=== PATIENT | female | born 1990 | race Caucasian/White ===

== ENCOUNTER 2025-03-31 18:24 | Emergency (ER) | payer OTHER, SELFPAY ==
--- NOTE | ~2025-03-31 | XR_ITS ---
EXAMINATION: XR knee RT min 4V DATE: 03/31/2025 19:18 INDICATION: Right knee pain TECHNIQUE: Anteroposterior, 2 oblique and crosstable lateral views of the right knee were obtained COMPARISON: None. FINDINGS: Alignment is normal. No fracture. Joint spaces appear normal on nonweightbearing imaging. No osteoph ytosis or erosions. No joint effusion/layering lipohemarthrosis. Soft tissues are unremarkable. IMPRESSION: 1. Normal right knee radiographs. Reviewed, dictated and finalized at location A.
[2025-03-31 18:34] VITALS: BP 113/85; PULSE 97; RESP 17; TEMP 36.4; O2SAT 99
--- NOTE | 2025-03-31 18:40 | ED.LOWEXIN ---
HPI - Extremity Injury (Lower) General Chief Complaint: Extremity Injury, Lower <Virginia Romero APRN - Last Filed: 04/03/25 19:05> Stated Complaint: r knee pain <Virginia Romero APRN - Last Filed: 04/03/25 19:05> Time Seen by Provider: 03/31/25 18:40 <Virginia Romero INTERIOR DESIGN PROFESSOR - Last Filed: 04/03/25 19:05> Focused HPI: Patient is a 34-year-old female who presents to the ER with right knee pain. She reports round 9:00 a.m. this morning she ?stepped up on a step and felt like a knife was going through it. Patient reports the pain is worse when she tries to straighten or bend her knee. She reports her knee joints feels stable. Patient denies any recent fevers, calf pain, redness or significant edema. She endorses a history of hysterectomy, tonsillectomy, hyperthyroidism, and left knee osteoarthritis. GENERAL: Well-appearing, obese and in no acute distress. HEAD: Normocephalic, atraumatic. CHEST: Clear to auscultation. ?No respiratory distress. HEART: Regular rate and rhythm.? NEURO: ?Alert and oriented x3. Patient screened in triage and initial orders placed.? ?Additional care and disposition to be based upon?diagnostic testing and treatment. <Virginia Romero, INTERIOR DESIGN PROFESSOR - Last Filed: 04/03/25 19:05> Related Data Allergies/Adverse Reactions: Allergies Allergy/AdvReac Type Severity Reaction Status Date / Time hydrocodone Allergy Intermediate Confusion Verified 03/31/25 18:39 oxycodone Allergy Intermediate Agitated Verified 03/31/25 18:39 <Virginia Romero, INTERIOR DESIGN PROFESSOR - Last Filed: 04/03/25 19:05> Course Vital Signs Vital signs: Vital Signs Temperature 36.4 C L 03/31/25 18:34 Pulse Rate 97 03/31/25 18:34 Respiratory Rate 17 03/31/25 18:34 Blood Pressure 113/85 03/31/25 18:34 Pulse Oximetry 99 03/31/25 18:34 Oxygen Delivery Room Air 03/31/25 18:34 Temperature 36.6 C 03/31/25 21:25 Pulse Rate 94 03/31/25 21:25 Respiratory Rate 18 03/31/25 21:25 Blood Pressure 116/78 03/31/25 21:25 Pulse Oximetry 99 03/31/25 21:25 Oxygen Delivery Room Air 03/31/25 21:25 <Virginia Romero APRN - Last Filed: 04/03/25 19:05> Vital Signs Temperature 36.4 C L 03/31/25 18:34 Pulse Rate 97 03/31/25 18:34 Respiratory Rate 17 03/31/25 18:34 Blood Pressure 113/85 03/31/25 18:34 Pulse Oximetry 99 03/31/25 18:34 Oxygen Delivery Room Air 03/31/25 18:34 Temperature 36.6 C 03/31/25 21:25 Pulse Rate 94 03/31/25 21:25 Respiratory Rate 18 03/31/25 21:25 Blood Pressure 116/78 03/31/25 21:25 Pulse Oximetry 99 03/31/25 21:25 Oxygen Delivery Room Air 03/31/25 21:25 <Corine Ellis MD - Last Filed: 04/04/25 07:15> MDM - Extremity Injury (Lower) MDM Narrative Medical decision making narrative: X-ray of right knee showed no acute abnormalities <Corine Ellis MD - Last Filed: 04/04/25 07:15> Imaging Data Radiologist's impression: x-ray of the right knee showed normal right knee radiograph <Corine Ellis MD - Last Filed: 04/04/25 07:15> Critical Care Time Critical Care Time Critical Care Time: No <Corine Ellis MD - Last Filed: 04/04/25 07:15> Discharge Plan Discharge Clinical Impression: Right knee sprain <Virginia Romero APRN - Last Filed: 04/03/25 19:05> Patient Disposition: Home <Virginia Romero APRN - Last Filed: 04/03/25 19:05> Condition: Stable <Virginia Romero APRN - Last Filed: 04/03/25 19:05> Instructions: Knee Sprain (ED) <Virginia Romero APRN - Last Filed: 04/03/25 19:05> Additional Instructions: RETURN IF SYMPTOMS ARE WORSENING , CALL YOUR FAMILY PHYSICIAN FOR APPOINTMENT, TAKE TYLENOL, IBUPROFEN NEEDED FOR ACHES AND PAIN, CONTINUE HOME MEDICATIONS. <Virginia Romero APRN - Last Filed: 04/03/25 19:05> Patient Language: Irish <Virginia Romero APRN - Last Filed: 04/03/25 19:05> Follow-up/Referrals: PHYSICIAN NOT ON STAFF,NONSTAFF [Non-Staff] - <Virginia Romero APRN - Last Filed: 04/03/25 19:05>
--- NOTE | 2025-03-31 19:41 | ED_ITS ---
HPI - Extremity Injury (Lower) General Chief Complaint: Extremity Injury, Lower Stated Complaint: r knee pain Time Seen by Provider: 03/31/25 18:40 Source: patient Mode of arrival: ambulatory Limitations: no limitations History of Present Illness HPI Narrative: 34 YEARS OLD WHITE FEMALE CAME TO THE ED BY PRIVATE CAR COMPLAINING OF RIGHT KNEE PAIN ANTERIORLY LATERALLY AFTER STEPPED UP 1 STEP AND FELT A POP SHE DENIES OTHER INJURIES Related Data Allergies Allergy/AdvReac Type Severity Reaction Status Date / Time hydrocodone Allergy Intermediate Confusion Verified 03/31/25 18:39 oxycodone Allergy Intermediate Agitated Verified 03/31/25 18:39 Review of Systems Review of Systems: All systems reviewed & are unremarkable except as noted in HPI and below Exam Narrative: GENERAL APPEARANCE: WELL-DEVELOPED, WELL-NOURISHED SKIN: NORMAL COLOR HEAD: NORMOCEPHALIC, NONTRAUMATIC CHEST AND RESPIRATORY: AIRWAY PATENT, NO RESPIRATORY DISTRESS, NO ACCESSORY MUSCLE USE HEART: REGULAR RATE/RHYTHM VASCULAR: NORMAL PERIPHERAL PULSES, NORMAL CAPILLARY REFILL. 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, NO GROSS MOTOR DEFICIT Course Vital Signs Vital signs: Vital Signs Temperature 36.4 C L 03/31/25 18:34 Pulse Rate 97 03/31/25 18:34 Respiratory Rate 17 03/31/25 18:34 Blood Pressure 113/85 03/31/25 18:34 Pulse Oximetry 99 03/31/25 18:34 Oxygen Delivery Room Air 03/31/25 18:34 Temperature 36.4 C L 03/31/25 18:34 Pulse Rate 97 03/31/25 18:34 Respiratory Rate 17 03/31/25 18:34 Blood Pressure 113/85 03/31/25 18:34 Pulse Oximetry 99 03/31/25 18:34 Oxygen Delivery Room Air 03/31/25 18:34 MDM - Extremity Injury (Lower) Differential Diagnosis Differential diagnosis: Likely other (RIGHT KNEE SPRAIN/STRAIN , INTERNAL INJURY) Imaging Data Radiologist's impression: Impressions Knee X-Ray 03/31/25 20:51 IMPRESSION: 1. Normal right knee radiographs. Critical Care Time Critical Care Time Critical Care Time: No Discharge Plan Discharge Clinical Impression: Right knee sprain Patient Disposition: Home Condition: Stable Instructions: Knee Sprain (ED) Additional Instructions: RETURN IF SYMPTOMS ARE WORSENING , CALL YOUR FAMILY PHYSICIAN FOR APPOINTMENT, TAKE TYLENOL, IBUPROFEN NEEDED FOR ACHES AND PAIN, CONTINUE HOME MEDICATIONS. Patient Language: Uzbek Follow-up/Referrals: PHYSICIAN NOT ON STAFF,NONSTAFF [Non-Staff] -
[2025-03-31] MEDS: KETOROLAC (*BKC) 60 MG/2 ML VIAL IM (19:43)
--- OUTSIDE RECORDS SUMMARY | 2025-03-31 20:45 | XMS_ITS ---
Author Organization [facility] Address [address] [place] [address] Care Team Providers Care Transcript Evaluator Name Role Phone Gena Dye Primary Care Provider Genevieve Dewitt [phone] REASON FOR VISIT New Patient Psych Eval Social History Sex Assigned At : Social History Observation Description Sex Assigned At Female Encounters Encounter Location Date Provider Diagnosis [facility] [address] [place] [address] 01/11/2025 Genevieve Dewitt Plan Of Treatment No Information Progress Notes * Veronica HILTONfabioDOB: 0 (34 yo F)Acc No.[id number]:01/11/2025 UNLOCKED PROGRESS NOTE Patient: Lurdes REA Provider: RADHA Wise :1990 A ge:34 Y S ex:Female Date:01/11/2025 Address:[address] [place], [place] [id number] Pcp:Gena Dye Subjective: * Chief Complaints: * 1 . New Patient Psych Eval. * Medical History: Objective: * Vitals: Assessment: Plan: * Treatment: * * Electronic signature of Prince Dewitt on 03/31/2025 at 05:05 PM CDT Sign off status: Pending * Provider: RADHA Wise Date: 01/11/2025 Generated for Jenny ng/Raj/eTransmitting on: 0 03/31/2025 05:05 PM CDT
--- OUTSIDE RECORDS SUMMARY | 2025-03-31 20:45 | XMS_ITS | Clinical Summary ---
Author Organization [facility] Address [address] [address] [place] [address] Phone Care Team Providers Care Bleacher Pulp Name Role Phone Unavailable Primary Care Provider Unavailabl e Allergies No known active allergies Medications triamcinolone acetonide (KENALOG) 0.1 % Paste Apply to affected area 2 times daily. Active dicyclomine (BENTYL) 10 mg capsule Take 10 mg by mouth 4 times daily. Active naproxen (NAPROSYN EC) 500 mg Tablet, Delayed Release (E.C.) Take by mouth 2 times daily. Active phentermine (ADIPEX P) 37.5 mg tablet Take 37.5 mg by mouth daily before breakfast. Active clindamycin phosphate (CLEOCIN) 1 % Swab Apply to affected area 2 times daily. Active doxycycline hyclate (VIBRAMYCIN) 100 mg capsule Take 100 mg by mouth 2 times daily. Active Encounters Date Type Department Care Team Description 03/07/2025 External Device Data [facility] Provider, Abstract 03/07/2025 External Device Data [facility] Provider, Abstract 03/07/2025 External Device Data [facility] Provider, Abstract 03/05/2025 5:06 PM CDT - 03/05/2025 7:48 PM CDT Emergency [facility] [address] [address] Constipation, unspecified constipation type (Primary Dx); Lower abdominal pain Discharge Disposition: Home or Self Care 03/05/2025 Travel from Last 3 Months Social History Tobacco Use Types Packs/Day Years Used Date Smoking Tobacco: Never Assessed Comments Unknown Sex and Gender Information Value Date Recorded Sex Assigned at Not on file Legal Sex Female 5:39 PM CDT Gender Identity Not on file Sexual Orientation Not on file Last Filed Vital Signs Vital Sign Reading Time Taken Comments Blood Pressure 119/86 03/05/2025 6:00 PM CDT Pulse 79 03/05/2025 6:00 PM CDT Temperature 36 C (96.8 F) 03/05/2025 5:05 PM CDT Respiratory Rate 16 03/05/2025 5:05 PM CDT Oxygen Saturation 94% 03/05/2025 6:00 PM CDT Inhaled Oxygen Concentration - - Weight 106.6 kg (235 lb) 03/05/2025 5:05 PM CDT Height 160 cm (5' 3) 03/05/2025 5:05 PM CDT Body Mass Index 41.63 03/05/2025 5:05 PM CDT Plan of Treatment Health Maintenance Due Date Last Done Comments HEPATITIS B VACCINES (3 of 3 - 3-dose series) 05/03/1997 03/08/1997, 01/03/1997 HPV VACCINES (1 - 3-dose series) 2004 DIABETES ANNUAL FOOT EXAM 12/10/2007 DIABETES ANNUAL RETINAL EXAM 12/10/2007 DIABETES MICROALBUMIN ANNUAL SCREEN 12/10/2007 LDL CHOLESTEROL ANNUAL 12/10/2007 HPV/Cotest (21-29) 2010 HPV/Cotest (30-65) 12/10/2019 COVID-19 Vaccine (3 - 2023-2 5 season) 2024 05/27/2021, 04/12/2021 INFLUENZA VACCINE (#1) 2025 06/11/2017 DIABETES HBA1C Q 6 MONTHS 08/29/2025 02/27/2025 DTAP/TDAP/TD VACCINES (8 - T d or Tdap) 10/06/2025 10/06/2015, 03/25/2015, 01/14/1994, Additional history exists CERVICAL CANCER SCREENING 11/21/2025 PAP SMEAR 11/21/2025 11/21/2022, 04/22/2017 Procedures Procedure Name Priority Date/Time Associated Diagnosis Comments EXTRA TUBE (URINE MARKS) Stat 03/05/2025 6:21 PM CDT URINALYSIS W/REFLEX MICROSCOPIC Stat 03/05/2025 6:21 PM CDT XR ABDOMEN 1 VW Stat 03/05/2025 6:00 PM CDT from Last 3 Months Results * EXTRA TUBE (URINE MARKS) (03/05/2025 6:21 PM CDT) Urine (Urine, straight in/out catheter) Collection / Unknown 03/05/2025 6:21 PM CDT 03/05/2025 6:27 PM CDT us Bernice Tovar PA-C URINE ORDERABLES Final Result [facility] [place] CLIA # [id number] [address] [place] [address] * (ABNORMAL) URINALYSIS WITH REFLEX MICROSCOPIC (03/05/2025 6:21 PM CDT) COLOR UA Pale Yellow Pale to Dark Yellow 03/05/2025 6:31 PM CDT [facility] CLARITY UA Clear Clear 03/05/2025 6:31 PM CDT [facility] SPECIFIC GRAVITY UA 1.019 1.003 - 1.035 03/05/2025 6:31 PM CDT [facility] PH UA 5.5 5.0 - 8.0 03/05/2025 6:31 PM CDT [facility] [place] LEUKOCYTE ESTERASE UA Negative Negative 03/05/2025 6:31 PM CDT [facility] [place] NITRITE UA Negative Negative 03/05/2025 6:31 PM CDT [facility] [place] PROTEIN UA Negative Negative 03/05/2025 6:31 PM CDT [facility] [place] GLUCOSE UA Negative Negative 03/05/2025 6:31 PM CDT [facility] [place] KETONES UA Trace(A) Negative 03/05/2025 6:31 PM CDT [facility] [place] UROBILINOGEN UA Normal <2.0 mg/dL 6:31 PM CDT [facility] [place] BILIRUBIN UA Negative Negative 03/05/2025 6:31 PM CDT [facility] [place] BLOOD UA Negative Negative 03/05/2025 6:31 PM CDT [facility] [place] Urine (Urine, straight in/out catheter) Collection / Unknown 03/05/2025 6:21 PM CDT 03/05/2025 6:27 PM CDT Bernice Tovar PA-C URINE ORDERABLES Final Result [facility] [place] MARSH # [id number] [place] [address] * XR ABDOMEN 1 VW (03/05/2025 6:00 PM CDT) Anatomical Region Laterality Modality Abdomen Computed Radiogr aphy 03/05/2025 6:01 PM CDT Impressions 03/05/2025 6:08 PM CDT IMPRESSION: Nonobstructive bowel gas pattern. Moderate amount of stool within the colon. DICTATION LOCATION: Location 4 Narrative 03/05/2025 6:08 PM CDT EXAM: XR ABDOMEN 1 VW DATE: 03/05/2025 6:00 PM HISTORY: Constipation COMPARISON: None FINDINGS: Frontal views of the abdomen were performed. The bowel gas pattern is nonspecific. There is no dilated bowel, free air, or air-fluid levels. A moderate amount of stool is noted throughout the colonic lumen. The soft tissues are otherwise unremarkable. The bones are within normal limits. Procedure Note Romain De La O MD - 03/05/2025 EXAM: XR ABDOMEN 1 VW DATE: 03/05/2025 6:00 PM HISTORY: Constipation COMPARISON: None FINDINGS: Frontal views of the abdomen were performed. The bowel gas pattern is nonspecific. There is no dilated bowel, free air, or air-fluid levels. A moderate amount of stool is noted throughout the colonic lumen. The soft tissues are otherwise unremarkable. The bones are within normal limits. IMPRESSION: Nonobstructive bowel gas pattern. Moderate amount of stool within the colon. DICTATION LOCATION: Location 4 Bernice Tovar PA-C DIAGNOSTIC IMAGING ORDERABLES Final Result from Last 3 Months Insurance [employer] [place]
--- OUTSIDE RECORDS SUMMARY | 2025-03-31 20:45 | XMS_ITS | Referral Summary ---
Author Organization [facility] Address [address] [place] [address] Care Team Providers Care Land Checker Name Role Phone Andrade Chen Primary Care Provider [phone] Encounters Date Type Department Care Team Description 01/02/2025 1:27 PM CDT - 01/02/2025 11:59 PM CDT Hospital Encounter [facility] Nutrition and Diabetic Education 1 [facility] [address] [place] [address] Type 2 diabetes mellitus with hyperglycemia, without long-term current use of insulin (HCC); Hyperlipidemia, unspecified hyperlipidemia type Discharge Disposition: Discharge to home or self care from Last 3 Months Allergies No known active allergies Medications naproxen (NAPROSYN) 500 mg tablet Take 1 tablet (500 mg total) by mouth 2 (two) times a day with meals 14 tablet 0 Active Additional Information Patient taking differently:500 mg oralAs needed, pain, Informant: Self, Reported on 01/22/2023 FLUoxetine 10 mg capsuleIndicati ons:Anxiety with Depression Take 1 tablet/capsule (10 mg total) by mouth nightly 3 Active dicyclomine (BENTYL) 10 mg capsule 3 Active cyclobenzaprine (FLEXERIL) 10 mg tabletIndicatio ns:Muscle Spasm Take 1 tablet (10 mg total) by mouth 3 (three) times a day as needed for muscle spasms 3 Active albuterol HFA (PROVENTIL HFA,VENTOLIN HFA,PROAIR HFA) 90 mcg/actuation inhalerIndicati ons:Acute Asthma Attack Inhale 2 puffs every 4 (four) hours as needed for wheezing or shortness of breath 2-3puffs 3 Active ibuprofen (ADVIL,MOTRIN) 800 mg tabletIndicatio ns:Anti-inflamm atory Take 1 tablet (800 mg total) by mouth every 6 (six) hours as needed for pain Active acetaminophen (TYLENOL) 500 mg tablet Take 2 tablets (1,000 mg total) by mouth every 6 (six) hours 60 tablet 1 3 Active ibuprofen (ADVIL,MOTRIN) 600 mg tablet Take 1 tablet (600 mg total) by mouth every 6 (six) hours as needed for pain 45 tablet 1 3 Active oxyCODONE (ROXICODONE) 5 mg immediate release tabletIndicatio ns:Pain Take 1 tablet (5 mg total) by mouth every 4 (four) hours as needed for pain For severe breakthrough pain 15 tablet 3 Active Additional Information Patient not taking.Reported on 03/05/2023 polyethylene glycol (MIRALAX) 17 gram/dose powder Take 17 g by mouth daily for 14 days 119 g 1 3 Active Active Problems Problem Noted Date Diagnosed Date Dysmenorrhea 11/21/2022 Overview (11/21/2022): Added automatically from request for surgery [id number] Depression 01/21/2014 Overview (12/11/2016): DEPRESSIVE DISORDER NEC Social History Tobacco Use Types Packs/Day Years Used Date Smoking Tobacco: Former Cigarettes 1 22 1 11/01/1999 - 08/31/2022 Passive Smoke Exposure: Past Smokeless Tobacco: Never Tobacco Cessation:Counseling Given: Not Answered Alcohol Use Standard Drinks/Week Comments No 0 (1 standard drink = 0.6 oz pur e alcohol) AUDIT-C Answer Date Recorded Q1: How often do you have a drink containing alcohol? Never 01/29/2023 Q2: How many drinks containi ng alcohol do you have on a typical day when you are drinking? Patient does not drink Q3: How often do you have si x or more drinks on one occasion? Never 01/29/2023 Hunger Vital Sign Answer Date Recorded Within the past 12 months, y ou worried that your food would run out before you got the money to buy more. Never true 03/05/20 23 Within the past 12 months, t he food you bought just didn't last and you didn't have money to get more. Never true 03/05/2023 Personal Safety Answer Date Recorded Have you ever been in or are you currently in a harmful physical or emotional relationship or is someone making you feel afraid or unsafe? Denies 01/29/2023 Comments No Sex and Gender Information Value Date Recorded Sex Assigned at Not on file Legal Sex Female 11:51 PM PROPERTY CLAIMS MANAGER Gender Identity Not on file Sexual Orientation Not on file Last Filed Vital Signs Vital Sign Reading Time Taken Comments Blood Pressure 145/88 03/05/2023 4:03 PM CDT Pulse 111 03/05/2023 4:03 PM CDT Temperature 36.4 C (97.5 F) 01/29/2023 10:30 AM CDT Respiratory Rate 13 01/29/2023 11:50 AM CDT Oxygen Saturation 99% 03/05/2023 4:03 PM CDT Inhaled Oxygen Concentration - - Weight 117.9 kg (260 lb) 01/02/2025 3:07 PM CDT Height 160 cm (5' 3) 01/02/2025 3:07 PM CDT Body Mass Index 46.06 01/02/2025 3:07 PM CDT Plan of Treatment Not on file Procedures Procedure Name Priority Date/Time Associated Diagnosis Comments EGFR Routine 01/22/2023 11:20 AM CDT Preoperative testing PAP AND HIGH RISK HPV, REFLEX TO GENOTYPING Routine 11/21/2022 8:58 AM CDT from Last 3 Months or Most Recently Relevant to Health Maintenance Results * eGFR (01/22/2023 11:20 AM CDT) eGFR >90 90 - 130 mL/min/1. 73 m2 [facility] Comment: Interpretive Data Reference Interval Normal >/= 90 mL/min/1.73m2 Mildly decreased* 60 - 89 mL/min/1.73m2 Mildly to moderately decreased 45 - 59 mL/min/1.73m2 Moderately to severely decreased 30 - 44 mL/min/1.73m2 Severely decreased 15 - 29 mL/min/1.73m2 Kidney Failure < 15 mL/min/1.73m2 *Relative to young adult level Estimated glomerular filtration rate is determined by the 2020 CKD-EPI equation recommended by the National Kidney Foundation (A Unifying Approach to GFR Estimation: Recommendations of the NKF-ASK Task Force on Reassessing the Inclusion of Race in Diagnosing Kidney Disease, JASN 2020). The CKD-EPI equation should not be used for patients with unstable renal function and has not been validated in children and those over 70. Current interpretive data was last reviewed 2021. Blood 01/22/2023 11:2 0 AM CDT 01/22/2023 12:38 PM CDT us Jono Montero WIND SITE MANAGER LAB BLOOD ORDERABLES Fin al Result [facility] Department [place] [address] * Pap and High Risk HPV, reflex to Genotyping (11/21/2022 8:58 AM CDT) Pap test 11/21/2022 8:58 AM CDT 11/21/2022 11:15 AM CDT Narrative 11/28/2022 4:36 PM CDT EPIC results best viewed via link to PDF [facility] [place] [address] Note to Patients: This report may contain a detailed description of human tissue sent by a health care provider to the laboratory for pathologic evaluation. The content of this report is essential for diagnosis and may provide important critical findings. This information may be unfamiliar to patients to review without a medical professional present. It is advised that the patient review this report in the presence of a health care provider who can answer questions and explain the details. CYTOPATHOLOGY REPORT FINAL Patient Name: JOVANY HILTON Gender: F : 1990 (Age: 31) Address: [address] [place] [id number] Hospital #: [id number] Service: Gynecology Location: Patient Type: [facility] Ancillary Taken: 11/21/2022 Received: 11/21/2022 Accessioned: 11/24/2022 Reported: 11/28/2022 Physician(s): Danielle Ayala MD, PhD FINAL INTERPRETATION SOURCE OF SPECIMEN Liquid based Thin Prep pap with HPV: STATEMENT OF ADEQUACY - Satisfactory for evaluation - Endocervical cells/transformation zone sample present GENERAL CATEGORIZATION: - Negative for squamous intraepithelial lesion or malignancy Comments HPV Result: NEGATIVE for high risk types of Human Papilloma Virus (HPV) RNA This probe detects the presence of HPV types: 16, 18, 31, 33, 35, 39, 45, 51, 52, 56, 58, 59, 66 and 68. This HPV test was performed at [facility] in [place], [place] utilizing the Gen-Probe Aptima assay. lw/11/28/2022 16:36 CHARU Cuba MS(ASCP)EBONI Report Electronically Reviewed and Signed Out By CHARU Cuba MS(ASCP)EBONI 11/28/2022 16:36:40 Cervicovaginal Cytology (Pap Test) Disclaimer: The Pap test is a screening test used to detect cervical cancer and its precursors; it is not a diagnostic procedure. False negative and false positive results do occur. Pap test results should be interpreted in the context of pertinent clinical information and biopsy results as indicated. [facility] Clinical Laboratory Improvement Amendments (CLIA) mandate that cytologic and histologic results be correlated for laboratory quality compliance coordinator & improvement standards. FOR ALL HIGH-GRADE CASES we request submission of follow-up histological material and/or reports that have not been previously provided so that we may fulfill said required standards. Gross Description A. Liquid based Thin Prep pap with HPV: Cervical/vaginal - Screening ThinPrep with HPV Clinical Diagnosis and History Last Menstrual Period: unknown The patient is a 31 year old woman with screening pap. The HPV test was performed by [facility], [address] [place] [address]. Report Images and scanned documents, if included only viewable in PDF version The performance characteristics of some immunohistochemical stains, in-situ hybridization and fluorescence in-situ hybridization tests and immunophenotyping by flow cytometry cited in this report (if any) were determined by the Surgical Pathology Department at [facility] as part of an ongoing director supplier quality program and in compliance with federally mandated regulations drawn from the Clinical Laboratory Improvement Act of 1988 (CLIA '88). Some of these tests rely on the use of analyte specific reagents and are subject to specific labeling requirements by the US Food and Drug Administration. Such diagnostic tests may only be performed in a facility that is certified by the Department of Health and Human Services as a high complexity laboratory under CLIA '88. The FDA has determined that such clearance or approval is not necessary. This test is used for clinical purposes. It should not be regarded as investigational or for research. Nevertheless, federal rules concerning the medical use of analyte specific reagents require that the following disclaimer be attached to the report: This test was developed and its performance characteristics determined by the Surgical Pathology Department of [facility]. It has not been cleared or approved by the U. S. Food and Drug Administration. Danielle Ayala MD PhD LAB CYTOLOGY ORDERAB LES Final Result from Last 3 Months or Most Recently Relevant to Health Maintenance Insurance [id number] [facility] Care Teams Land Checker Relationship Specialty Start Date End Date Andrade Chen PA [address] [place] [address] PCP - General Orthopedic Surgery 12/23/24
--- OUTSIDE RECORDS SUMMARY | 2025-03-31 20:45 | XMS_ITS | Clinical Summary ---
Author Organization [facility] Address [address] [place] [address] Care Team Providers Care Ground Host/Hostess Name Role Phone Unknown, Provider Primary Care Provider Unavaila ble Source Comments [facility],non-owned Affiliates and Associated Physician Practices is amultiple site organization consisting of ambulatory clinics and hospital sitesin [place], [place], [place] and [place]. This disclosure is being madepursuant to the Care Everywhere program and may not contain all information available regarding this patient. Last updated 18.[facility] Allergies Active Allergy Reactions Criticality Noted Date Comments Hydrocodone-Acetaminophen Other 02/18/2021 Patient states she does not want to be prescribed Vicodin as she likes them and knows she will become addicted to them Seasonal Swelling High 12/26/2015 marijuana Medications * Be aware that medications may not be up to date on this document. Alwaysverify current medications with the patient. erythromycin (ERYDERM) 2 % solution 120 mL 2 8 Active Additional Information Patient not taking.Reported on 02/09/2023 albuterol HFA (Proventil; Ventolin; Proair) 108 (90 Base) MCG/ACT inhaler INHALE 2 PUFFS BY MOUTH EVERY 6 HOURS NEEDED FOR WHEEZING OR COUGH 3 Active FLUoxetine (PROzac) 10 MG capsule Take 1 (one) capsule by mouth once daily 3 Active cyclobenzaprine (Flexeril) 10 MG tablet Take 1 (one) tablet by mouth 3 times daily as needed For muscle spasms. 3 Active hydrocortisone (Hytone) 2.5 % creamIndications :Intertrigo Apply to affected areas in skin folds when pink and itchy up BID PRN. 30 days supply. 30 g 11 3 Active ketoconazole (Nizoral) 2 % creamIndications :Intertrigo Apply to affected areas twice daily PRN. 30 days supply. 60 g 11 3 Active clindamycin (Cleocin) 1 % lotionIndication s:Bacterial folliculitis Apply to affected areas on folds daily PRN. 30 day supply. 60 mL 11 4 Active doxycycline hyclate 100 MG tabletIndication s:Bacterial folliculitis TAKE 1 TABLET BY MOUTH TWICE DAILY AFTER MEAL 60 tablet 2 5 Active Active Problems No known active problems Encounters Date Type Department Care Team Description 03/29/2025 Telephone [facility] - Dermatology [address] [place] [address] [phone] Brionna Nichole MD Medication Issue (Pls call to discuss pt concerns abt infection w/out med refills until appt in June.) 03/06/2025 Refill [facility] - Dermatology [address] [place] [address] [phone] Lita Varela MD Refill Request from Last 3 Months Family History Medical History Relation Name Comments Cancer - Skin, Melanoma Mother CVA Neg Hx Cancer - Breast Neg Hx Cancer - Other Neg Hx Cancer - Skin, Non Melanoma Neg Hx Eczema Neg Hx Hemophilia Neg Hx Psoriasis Neg Hx Relation Name Status Comments Mother Social History Tobacco Use Types Packs/Day Years Used Date Smoking Tobacco: Every Day Smokeless Tobacco: Never Comments Unknown Sex and Gender Information Value Date Recorded Sex Assigned at Not on file Legal Sex Female 5:57 PM CDT Gender Identity Not on file Sexual Orientation Not on file Plan of Treatment Health Maintenance Due Date Last Done Comments HIV SCREENING 2004 HEPATITIS C SCREENING 12/05/2007 DTAP/TDAP/TD VACCINES (1 - Tdap) 2008 HEPATITIS B VACCINE (1 of 3 - 19+ 3-dose series) 2008 PNEUMOCOCCAL VACCINE (1 of 2 - PCV) 2008 PAP SMEAR 2010 HPV VACCINE (1 - 3-dose SCDM series) 2016 COVID-19 VACCINE (2023-2 5 season) 2024 05/27/2021, 04/12/2021 DEPRESSION SCREENING 09/07/2024 INFLUENZA VACCINE (#1) 2025 06/11/2017 ZOSTER VACCINE (1 of 2) 12/10/2039 HIB VACCINE Aged Out No longer eligi ble based on patient's age to complete this topic MENINGOCOCCAL (Group B) VACCINE SHARED DECISION-MAKING Aged Out No longer eligible based on patient's age to complete this topic MENINGOCOCCAL GROUPS A/C/Y/W VACCINE Aged Out No longer eligible b ased on patient's age to complete this topic Insurance [facility] Member Subscriber Plan / Payer (Ef fective for All Dates) Name:Jovany Hilton Relation to Subscriber:Self Name:JOVANY HILTON Payer ID:[id number] (NAIC) Group ID:Not on file Type:Medicaid Managed Care Address: [facility] CLAIMS DEPARTMENT [address] [address] [place] [address] Care Teams Ground Host/Hostess Relationship Specialty Start Date End Date Unknown, Provider PCP - General 01/14/18
--- OUTSIDE RECORDS SUMMARY | 2025-03-31 20:45 | XMS_ITS | Encounter Summary ---
Author Organization [facility] Address [address] [place] [address] Care Team Providers Care Meter Maker Name Role Phone Unknown, Provider Primary Care Provider Unavaila ble Reason for Visit * Reason Onset Date Comments MEDICATION REFILL 08/13/2023 Encounter Details Date Type Department Care Team (Late st Contact Info) Description 08/13/2023 Refill [facility] - General Dermatology [address], [facility] [address] [place] [address] Norma Potter MD [address] [facility] [address] [id number] MEDICATION REFILL Social History Tobacco Use Types Packs/Day Years Used Date Smoking Tobacco: Every Day Smokeless Tobacco: Never Comments Unknown Sex and Gender Information Value Date Recorded Sex Assigned at Not on file Legal Sex Female 5:57 PM CDT Gender Identity Not on file Sexual Orientation Not on file documented as of this encounter Miscellaneous Notes * Telephone Encounter - Wilda Mo - 08/13/2023 4:00 PM CST LV 02/09/23 NV 12/04/23 RTC 3 months or earlier PRN. ?? *KOLE note states that patient did not tolerate* Wilda Mo ETARY TO BOARD OF COMMISSIONERS documented in this encounter Plan of Treatment Not on file documented as of this encounter Visit Diagnoses Not on filedocumented in this encounter Care Teams Meter Maker Relationship Specialty Start Date End Date Unknown, Provider PCP - General 01/14/18 documented as of this encounter
--- OUTSIDE RECORDS SUMMARY | 2025-03-31 20:45 | XMS_ITS | Encounter Summary ---
Author Organization [facility] Address [address] [place] [address] Care Team Providers Care Client Relations Specialist Name Role Phone Unknown, Provider Primary Care Provider Unavaila ble Reason for Visit * Reason Onset Date Comments MEDICATION REFILL 2023 Encounter Details Date Type Department Care Team (Late st Contact Info) Description 2023 Refill [facility] - General Dermatology [address], [facility] [address] [place] [address] Norma Potter MD [address] [facility] [address], [place] [id number] MEDICATION REFILL Social History Tobacco Use Types Packs/Day Years Used Date Smoking Tobacco: Every Day Smokeless Tobacco: Never Comments Unknown Sex and Gender Information Value Date Recorded Sex Assigned at Not on file Legal Sex Female 5:57 PM CDT Gender Identity Not on file Sexual Orientation Not on file documented as of this encounter Plan of Treatment Not on file documented as of this encounter Visit Diagnoses Not on filedocumented in this encounter Care Teams Client Relations Specialist Relationship Specialty Start Date End Date Unknown, Provider PCP - General 01/14/18 documented as of this encounter
--- OUTSIDE RECORDS SUMMARY | 2025-03-31 20:45 | XMS_ITS | Patient Health Record ---
Author Organization [facility] Address [address] [place] [address] Care Team Providers Care Dance Choreographer Name Role Phone Gena Dye Primary Care Provider Genevieve Dewitt [phone] Reason For Referral No Information Social History Sex Assigned At : Social History Observation Description Sex Assigned At Female Plan Of Treatment No Information Insurance Providers Payer Name Payer Address Payer Phone Subscriber Number Group Number Insured Name Patient Relationship to Insured Coverage Start Date Coverage End Date [facility] Attn Claims Department [address] [place] [id number] Lurdes Hilton Self - patient is the insured 5
--- OUTSIDE RECORDS SUMMARY | 2025-03-31 20:45 | XMS_ITS | Encounter Summary ---
Author Organization [facility] Address [address] [place] [address] Phone Care Team Providers Care Access Representative Name Role Phone Piyush Sauer DO Unavailable [phone] [place] Verma ANALYTICS ASSOCIATE, FORKLIFT MATERIAL HANDLER Unavailable Socorro Hopson ANALYTICS ASSOCIATE, FORKLIFT MATERIAL HANDLER Unavailable Andrade Chen PAC Primary Care Provider Shelbie Bonner ANALYTICS ASSOCIATE, FORKLIFT MATERIAL HANDLER Unavailable Encounter Details Date Type Department Care Team (Late st Contact Info) Description 10/14/2023 Lab [facility]quisition [facility] [address] [place] [address] Andrade Chen, PAC [address] [place] [address] Encounter for pre-employment examination Social History Tobacco Use Types Packs/Day Years Used Date Smoking Tobacco: Former Cigarettes 1 15 Smokeless Tobacco: Never Alcohol Use Standard Drinks/Week Comments No 0 (1 standard drink = 0.6 oz pur e alcohol) PHQ-2 Answer Date Recorded PHQ-2 Score 0 05/11/2019 Sexually Active Control Partners Comments Yes Implant Comments No Sex and Gender Information Value Date Recorded Sex Assigned at Female 2024 12:01 AM CDT Legal Sex Female 9:16 PM CDT Gender Identity Female 2024 12:01 AM CDT Sexual Orientation Not on file documented as of this encounter Plan of Treatment Upcoming Encounters Date Type Department Care Team (Late st Contact Info) Description 04/13/2025 2:15 PM CDT Office Visit [facility] - Primary Care - [place] [address] [place] [address] Andrade Chen, GURPREET [address] [place] [address] 06/02/2025 2:30 PM CDT Office Visit [facility] - Endocrinology - [address] [place] [address] Danuta Daniel MD [address] [address] documented as of this encounter Procedures Procedure Name Priority Date/Time Associated Diagnosis Comments QUANTIFERON-TB GOLD PLUS Routine 10/14/2023 10:20 AM CAP LINING MACHINE OPERATOR Encounter for pre-employment examination documented in this encounter Results * QUANTIFERON-TB GOLD PLUS (10/14/2023 10:20 AM CAP LINING MACHINE OPERATOR) NIL CONTROL 0.00 <8.01 IU/mL 10/16/2023 10:27 AM CAP LINING MACHINE OPERATOR [facility] TB ANTIGEN 1 0.00 <0.35 IU/mL 10/16/2023 10:27 AM CAP LINING MACHINE OPERATOR [facility] TB ANTIGEN 2 0.00 <0.35 IU/mL 10/16/2023 10:27 AM [facility] MITOGEN CONTROL 10.00 >0.49 IU/mL 10/16/19 10:27 AM [facility] INTEPRETATION TB NEGATIVE NEGATIVE, NEGATIVE (TB antigen response less than 25% of internal negative control value) 10/16/2023 10:27 AM CAP LINING MACHINE OPERATOR [facility] Comment:No immune response t o Mycobacterium tuberculosis antigens was noted. M. tuberculosis infection unlikely. Blood No Phlebotomy Charged / Unknown 10/14/2023 10:20 AM CAP LINING MACHINE OPERATOR 10/14/2023 12:31 PM CAP LINING MACHINE OPERATOR Narrative [facility] - 10/16/2023 10:27 AM CAP LINING MACHINE OPERATOR A POSITIVE QUANTIFERON-TB GOLD PLUS RESULT SHOULD NOT BE THE SOLE OR DEFINITIVE BASIS FOR DETERMINING INFECTION WITH M.TUBERCULOSIS. Diagnosing or excluding tuberculosis disease, and assessing the probability of LTBI, requires a combination of epidemiological, historical, medical and diagnostic findings (e.g., acid fast bacilli (AFB) smear and culture, chest xray) that should be taken into account when interpreting QFT-Plus results. Furthermore, the magnitude of the measured gamma interferon level cannot be correlated to stage or degree of infection, level of immune responsiveness, or likelihood for progression to active disease. The Nil control adjusts for background (e.g., elevated levels of circulating gamma interferon or presence of heterophile antibodies). The Mitogen control serves as an internal positive control and verifies each specimen tested can produce a gamma interferon response. Low mitogen may occur with insufficient lymphocytes, reduced lymphocyte activity due to improper specimen handling, filling/mixing of the mitogen tube, or inability of the patient's lymphocytes to generate gamma interferon. Infection with other Mycobacteria, including M. kansasii, M. szulgai, and M. marinum, may cause false positive results. A negative QuantiFERON-TB Gold Plus result does not preclude the possibility of M. tuberculosis infection or tuberculosis disease: false negative results can be due to incorrect blood sample collection/ improper handling of the specimen, stage of infection (e.g., specimen obtained prior to the development of cellular immune response), co-morbid conditions which affect immune function, or other individual immunological factors. The minimum number of lymphocytes required for a reliable test has not been established and may also be variable. Diagnostic testing for Mycobacterium tuberculosis using Interferon Gamma Release Assays should follow applicable published guidelines, including when testing in populations such as children, women, and HIV-infected or otherwise immunocompromised individuals. https://www.cdc.gov/tb/publications/guidelines/testing.htm Andrade Chen [facility] IMMUNOLOGY ORDERABLES Final Result [facility] [address] [place] [address], documented in this encounter Visit Diagnoses Diagnosis Encounter for pre-employment examination Health examination of defined subpopulation documented in this encounter Additional Health Concerns Assessment Noted Time PHQ-9 Depression Total Score: 0 06/18/20 18 2:00 PM CDT documented as of this encounter Care Teams Access Representative Relationship Specialty Start Date End Date Andrade Chen, PAC [address] [place] [address] PCP - General Physician Primary Care Sales Representative 12/10/22 Piyush Sauer, Gastroenterology 03/04/16 [place] Verma APRN, FORKLIFT MATERIAL HANDLER Nurse Practitioner Advanced Practice Nurse 03/04/16 Socorro Hopson, CLARICE, FORKLIFT MATERIAL HANDLER Nurse Practitioner Advanced Practice Nurse 03/04/16 Shelbie Bonner APRN, FORKLIFT MATERIAL HANDLER [address] [place] [address] Nurse Practitioner Advanced Practice Nurse 11/02/23 documented as of this encounter
--- OUTSIDE RECORDS SUMMARY | 2025-03-31 20:45 | XMS_ITS | Encounter Summary ---
Author Organization [facility] Address [address] [place] [address] Phone Care Team Providers Care Commercial Credit Analyst Name Role Phone Piyush Sauer DO Unavailable [phone] [place] Verma METAL SHAPING MACHINE OPERATOR, SOFTWARE INTEGRATION DEVELOPER Unavailable [phone] Socorro Hopson METAL SHAPING MACHINE OPERATOR, SOFTWARE INTEGRATION DEVELOPER Unavailable Andrade Chen Primary Care Provider [phone] Shelbie Bonner METAL SHAPING MACHINE OPERATOR, SOFTWARE INTEGRATION DEVELOPER Unavailable Reason for Visit * Reason Comments Medication Refill Encounter Details Date Type Department Care Team (Late st Contact Info) Description 05/15/2023 Refill [facility] - Primary Care - [place] [address] [place] [address] Andrade Chen, PAC [address] [place] [address] Medication Refill Social History Tobacco Use Types Packs/Day Years [...] encounter Miscellaneous Notes * Telephone Encounter - Norma Son RN - 05/15/2023 2:03 PM CDT Medication failed the protocol, provider to review and approve the medication order if appropriate. Requested Prescriptions Pending Prescriptions Disp Refills cyclobenzaprine (FLEXERIL) 10 MG Tablet [Pharmacy Med Name: CYCLOBENZAPRINE 10MG TABLETS] 30 Tablet0 Sig: TAKE 1 TABLET BY MOUTH THREE TIMES DAILY NEEDED FOR MUSCLE SPASMS Not Delegated - Muscle Relaxants Protocol Failed - 05/15/2023 1:59 PM Failed - This refill cannot be delegated Passed - Visit with relevant provider in past 12 months or upcoming 90 days Recent Visits Date Type Provider Dept 01/07/23 Office Visit Andrade Chen PAC [facility] 12/10/22 Office Visit Andrade Chen PAC [facility] Showing recent visits within past 365 days and meeting all other requirements Future Appointments Date Type Provider Dept 07/06/23 Appointment [facility] 07/13/23 Appointment Andrade Chen PAC [facility] Showing future appointments within next 90 days and meeting all other requirements documented in this encounter Plan of Treatment Upcoming Encounters Date Type Department Care Team (Late st Contact Info) Description 04/13/2025 2:15 PM CDT Office Visit [facility] - Primary Care - [place] [address] [place] [address] Andrade Chen PAC [address] [place] [address] 06/02/2025 2:30 PM CDT [facility] [place] [address] [place] [address] Danuta Daniel MD [address] [phone] documented as of this encounter Visit Diagnoses Diagnosis Back muscle spasm Other symptoms referable to back documented in this encounter Additional Health Concerns Infection Onset Date Last Indicated Resolved Time C. difficile Rule-Out 09/25/2023 09/30/20232023 2:46 PM PLASTIC TILE LAYER Assessment Noted Time PHQ-9 Depression Total Score: 0 06/18/20 18 2:00 PM CDT documented as of this encounter Care Teams Commercial Credit Analyst Relationship Specialty Start Date End Date Andrade Chen, PAC [address] [place] [id number] PCP - General Physician Patient Care Technician Instructor 12/10/22 Piyush Sauer DO Gastroenterology 03/04/16 [place] Verma APRN, SOFTWARE INTEGRATION DEVELOPER Nurse Practitioner Advanced Practice Nurse 03/04/16 Socorro Hopson APRN, SOFTWARE INTEGRATION DEVELOPER Nurse Practitioner Advanced Practice Nurse 03/04/16 Shelbie Bonner APRN, SOFTWARE INTEGRATION DEVELOPER [address] [place] [address] Nurse Practitioner Advanced Practice Nurse 11/02/23 documented as of this encounter
--- OUTSIDE RECORDS SUMMARY | 2025-03-31 20:45 | XMS_ITS | Encounter Summary ---
Author Organization [facility] Address [address] [place] [address] Care Team Providers Care Library Circulation Assistant Name Role Phone Unknown, Provider Primary Care Provider Unavaila ble Reason for Visit * Reason Onset Date Comments Medication Issue 03/29/2025 Pls call to dis cuss pt concerns abt infection w/out med refills until appt in June. Encounter Details Date Type Department Care Team (Late st Contact Info) Description 03/29/2025 Telephone [facility] - Dermatology [address] [place] [address], [facility] [place] [address] Brionna Nichole MD [address] [place] [address] [address] [place] [address] Medication Issue (Pls call to discuss pt concerns abt infection w/out med refills until appt in June.) Social History Tobacco Use Types Packs/Day Years Used Date Smoking Tobacco: Every Day Smokeless Tobacco: Never Comments Unknown Sex and Gender Information Value Date Recorded Sex Assigned at Not on file Legal Sex Female 5:57 PM CDT Gender Identity Not on file Sexual Orientation Not on file documented as of this encounter Miscellaneous Notes * Telephone Encounter - Smooth Klein - 03/29/2025 8:38 AM CDT Pls call to discuss pt concerns abt infection w/out med refills until appt in June. documented in this encounter Plan of Treatment Not on file documented as of this encounter Visit Diagnoses Not on filedocumented in this encounter Care Teams Library Circulation Assistant Relationship Specialty Start Date End Date Unknown, Provider PCP - General 01/14/18 documented as of this encounter
--- OUTSIDE RECORDS SUMMARY | 2025-03-31 20:45 | XMS_ITS | Clinical Summary ---
Author Organization [facility] Address [address] [place] [address] Care Team Providers Care Road Roller Operator Hot Mix Name Role Phone Andrade Chen Primary Care Provider [phone] Allergies No known active allergies Medications naproxen [...] (11/21/2022): Added automatically from request for surgery [id number] Depression 01/21/2014 Overview (12/11/2016): DEPRESSIVE DISORDER NEC Encounters Date Type Department Care Team Description 01/02/2025 1:27 PM CDT - 01/02/2025 11:59 PM CDT Hospital Encounter [facility] Nutrition and Diabetic Education [address] [place] [address] Type 2 diabetes mellitus with hyperglycemia, without long-term current use of insulin (HCC); Hyperlipidemia, unspecified hyperlipidemia type Discharge Disposition: Discharge to home or self care from Last 3 Months Surgical History Surgery Date Site/Laterality Comments TONSILLECTOMY Tonsillectomy Medical History Medical History Date Comments Hx Other Medical Lt arm FX Undifferentiated attention deficit disorder ADD Hx Other Medical menstrual cramp s Anemia Anemia Asthma Asthma Depression Obesity Family History Medical History Relation Name Comments Other Father Alive and well; Diabetes type II Mother Diabetes -T ype II; Hypothyroidism Mother Hypothyroidis m; Melanoma Mother Cancer -melanom a; Other Mother Alive and well; Anesthesia problems Neg Hx Relation Name Status Comments Father Alive Mother Alive Social History Tobacco Use Types Packs/Day Years [...] on file Legal Sex Female 11:51 PM EXTRUSION PRESS ADJUSTER Gender Identity Not on file Sexual Orientation Not on file Obstetrics History Last Filed Vital Signs Vital Sign Reading [...] 01/02/2025 3:07 PM CDT Plan of Treatment Health Maintenance Due Date Last Done Comments Albumin Creatinine Ratio, Urine 1989 Depression Screening 1989 Hemoglobin A1C 1989 Hepatitis C Screening 1989 Dilated Eye Exam 1989 Foot Exam 1989 Varicella Vaccines (1 of 2 - 13+ 2-dose series) 2002 Regular Well Visit/Exam 18-64 12/10/2007 Pneumococcal vaccine <65 (1 of 2 - PCV) 2008 HPV Vaccines (1 - 3-dose SCD M series) 2016 Cervical Cancer Screening 11/22/2023 11/21/2022 eGFR 01/23/2024 01/22/2023 Covid-19 Vaccine (3 - 2023-2 5 season) 2024 05/27/2021, 04/12/2021 Influenza Vaccine (#1) 2025 06/11/2017 DTaP/Tdap/Td Vaccine (8 - Td or Tdap) 10/06/2025 10/06/2015, 03/25/2015, 01/14/1994, Additional history exists Lipid Panel 10/31/2025 10/31/2024 Hepatitis B Screening Completed 03/08/1997, 997 Procedures Procedure Name Priority Date/Time Associated Diagnosis Comments EGFR Routine 01/22/2023 11:20 AM CDT Preoperative testing PAP AND HIGH RISK HPV, REFLEX TO GENOTYPING Routine 11/21/2022 8:58 AM CDT from Last 3 Months or Most Recently Relevant to Health Maintenance Results * eGFR (01/22/2023 11:20 AM CDT) eGFR >90 90 - 130 mL/min/1. 73 m2 [facility] Comment: Interpretive Data Reference Interval Normal >/= [...] 01/22/2023 12:38 PM CDT us Jono Montero DIALYSIS CHIEF EQUIPMENT TECHNICIAN LAB BLOOD ORDERABLES Fin al Result [facility] Department [place] [address] * Pap and High Risk HPV, reflex to Genotyping (11/21/2022 8:58 AM CDT) Pap test 11/21/2022 8:58 AM CDT 11/21/2022 11:15 AM CDT Narrative 11/28/2022 4:36 PM CDT EPIC results best viewed via link to PDF [facility] Yanira Romero [facility] [place] [address] Note to Patients: This report may contain [...] REPORT FINAL Patient Name: JOVANY HILTON Gender: Ke : 1990 (Age: 31) Address: [address] [place], [place] [address] Hospital #: [id number] Service: Gynecology Location: Patient Type: [facility] Ancillary Taken: 11/21/2022 Received: 11/21/2022 Accessioned: 11/24/2022 [...] 67. This HPV test was performed at [facility] in [place], [place] utilizing the Gen-Probe Aptima assay. [facility]/11/28/2022 16:36 CHARU Cuba MS(ASCP)EBONI Report Electronically Reviewed and Signed Out By Rolando Stone MS CT(ASCP)EBONI 11/28/2022 16:36:40 Cervicovaginal Cytology (Pap Test) Disclaimer: The Pap test is a screening test used to detect cervical cancer and its precursors; it is not a diagnostic procedure. False negative and false positive results do occur. Pap test results should be interpreted in the context of pertinent clinical information and biopsy results as indicated. [facility] Clinical Laboratory Improvement Amendments (CLIA) mandate that cytologic and histologic results be correlated for laboratory quality control coordinator & improvement standards. FOR ALL HIGH-GRADE [...] pap. The HPV test was performed by [facility], [address] [place] [address]. Report Images and scanned documents, if included only viewable in PDF version The performance characteristics of some immunohistochemical stains, in-situ hybridization and fluorescence in-situ hybridization tests and immunophenotyping by flow cytometry cited in this report (if any) were determined by the Surgical Pathology Department at [facility] as part of an ongoing cloth tester quality program and in compliance with federally [...] determined by the Surgical Pathology Department of [facility]. It has not been cleared or approved by the U. S. Food and Drug Administration. Danielle Ayala MD PhD LAB CYTOLOGY ORDERAB LES Final Result from Last 3 Months or Most Recently Relevant to Health Maintenance Insurance [place] Care Teams Road Roller Operator Hot Mix Relationship Specialty Start Date End Date Andrade Chen PA [address] [place] [address] PCP - General Orthopedic Surgery 12/23/24
--- OUTSIDE RECORDS SUMMARY | 2025-03-31 20:45 | XMS_ITS | Encounter Summary ---
Author Organization [facility] Address [address] [place] [address] Phone Care Team Providers Care E M Assembler Name Role Phone Piyush Sauer DO Unavailable [phone] [place] Verma EVENT SPECIALIST FOOD DEMONSTRATOR, IN CLASS SPECIAL EDUCATION TEACHER Unavailable Socorro Hopson EVENT SPECIALIST FOOD DEMONSTRATOR, IN CLASS SPECIAL EDUCATION TEACHER Unavailable Andrade Chen Primary Care Provider [phone] Shelbie Bonner EVENT SPECIALIST FOOD DEMONSTRATOR, IN CLASS SPECIAL EDUCATION TEACHER Unavailable Reason for Visit * Reason Comments Medication Refill Encounter Details Date Type Department Care Team (Late st Contact Info) Description 05/25/2023 Refill [facility] - Primary Care - [place] [address] [place] [address] Andrade Chen, PAC [address] [place] [address] Medication Refill Social History Tobacco [...] encounter Miscellaneous Notes * Telephone Encounter - Andrade Chen PAC - 05/25/2023 11:08 AM CDT Rx filled 1 week ago. Too soon to fill. * Telephone Encounter - Elle Fernandez RN - 05/25/2023 10:25 AM CDT Medication failed the protocol, provider to review and approve the medication order if appropriate. Requested Prescriptions Pending Prescriptions Disp Refills cyclobenzaprine (FLEXERIL) 10 MG Tablet [Pharmacy Med Name: CYCLOBENZAPRINE 10MG TABLETS] 30 Tablet0 Sig: TAKE 1 TABLET BY MOUTH THREE TIMES DAILY NEEDED FOR MUSCLE SPASMS Not Delegated - Muscle Relaxants Protocol Failed - 05/25/2023 8:39 AM Failed - This refill cannot be delegated Passed - Visit with relevant provider in past 12 months or upcoming 90 days Recent Visits Date Type Provider Dept 01/07/23 Office Visit Andrade Chen PAC [facility] 12/10/22 Office Visit Andrade Chen PAC [facility] Showing recent visits within past 365 days and meeting all other requirements Future Appointments Date Type Provider Dept 07/06/23 Appointment Lab, [facility] 07/13/23 Appointment Andrade Chen PAC [facility] Showing future appointments within next 90 days and meeting all other requirements documented in this encounter Plan of Treatment Upcoming Encounters Date Type Department Care Team (Late st Contact Info) Description 04/13/2025 2:15 PM CDT Office Visit [facility] - Primary Care - [address] [place] [address] Andrade Chen, PAC [address] [place] [address] 06/02/2025 2:30 PM CDT [facility] Visit [facility] [address] [place] [address] Danuta Daniel MD [address] [address] documented as of this encounter Visit Diagnoses Diagnosis Back muscle spasm Other symptoms referable to back documented in this encounter Additional Health Concerns Infection Onset Date Last Indicated Resolved Time C. difficile Rule-Out 09/25/2023 09/30/20232023 2:46 PM REVIEW RN Assessment Noted Time PHQ-9 Depression Total Score: 0 06/18/20 18 2:00 PM CDT documented as of this encounter Care Teams E M Assembler Relationship Specialty Start Date End Date Andrade Chen, GURPREET [address] [place] [address] PCP - General Physician Labor Gang Supervisor 12/10/22 Piyush Sauer DO Gastroenterology 03/04/16 [place] Verma APRN, IN CLASS SPECIAL EDUCATION TEACHER Nurse Practitioner Advanced Practice Nurse 03/04/16 Socorro Hopson APRN, IN CLASS SPECIAL EDUCATION TEACHER Nurse Practitioner Advanced Practice Nurse 03/04/16 Shelbie Bonner APRN, IN CLASS SPECIAL EDUCATION TEACHER [address] [place] [address] Nurse Practitioner Advanced Practice Nurse 11/02/23 documented as of this encounter
--- OUTSIDE RECORDS SUMMARY | 2025-03-31 20:45 | XMS_ITS | Encounter Summary ---
Author Organization [facility] Address [address] [place] [address] Phone Care Team Providers Care Municipal Firefighter Name Role Phone Piyush Sauer DO Unavailable [phone] [place] Verma WEATHERIZATION FIELD TECHNICIAN, CARTOGRAPHY PROFESSOR Unavailable Socorro Hopson WEATHERIZATION FIELD TECHNICIAN, CARTOGRAPHY PROFESSOR Unavailable Andrade Chen PAC Primary Care Provider [phone] Shelbie Bonner WEATHERIZATION FIELD TECHNICIAN, CARTOGRAPHY PROFESSOR Unavailable Encounter Details Date Type Department Care Team (Late st Contact Info) Description 03/06/2025 Results Follow-Up [facility] - Primary Care - [place] [address] [place] [address] Poppy Coe, WEATHERIZATION FIELD TECHNICIAN, CARTOGRAPHY PROFESSOR [address] [place] [address] CULTURE, URINE Social History Tobacco Use Types Packs/Day Years Used Date Smoking Tobacco: Former Cigarettes 1 15 Smokeless Tobacco: Never Alcohol Use Standard Drinks/Week Comments No 0 (1 standard drink = 0.6 oz pur e alcohol) [facility] Utilities Answer Date Recorded In the past 12 months has e electric, gas, oil, or water company threatened to shut off services in your home? No 08/21/2024 Social Connection and Isolation Panel Answer Date Recorded In a typical week, how many times do you talk on the phone with family, friends, or neighbors? Once a week 08/21/2024 How often do you get together with friends or re latives? Never 08/21/2024 How often do you attend hindu or gnosticist serv ices? Never 08/21/2024 Do you belong to any clubs o r organizations such as hindu groups, unions, fraternal or athletic groups, or school groups? No 08/21/2024 How often do you attend meet ings of the clubs or organizations you belong to? Never 08/21/2024 Are you , , di vorced, , never , or living with a partner? 08/21/2024 AUDIT-C Answer Date Recorded Q1: How often do you have a drink containing alcohol? Never 08/21/2024 Q2: How many drinks containi ng alcohol do you have on a typical day when you are drinking? Patient does not drink Q3: How often do you have si x or more drinks on one occasion? Never 08/21/2024 Overall Financial Resource Strain (CARDIA) Answe r Date Recorded How hard is it for you to pa y for the very basics like food, housing, medical care, and heating? Somewhat hard 08/21/2024 PHQ-2 Answer Date Recorded Total Score - Questions 1-9 11/06 [facility] - Occupational Stress Questionnaire Answer Date Recorded Do you feel stress - tense, restless, nervous, or anxious, or unable to sleep at night because your mind is troubled all the time - these days? Very much 08/21/2024 Exercise Vital Sign Answer Date Recorde d On average, how many days pe r week do you engage in moderate to strenuous exercise (like a brisk walk)? 1 day 08/21/2024 On average, how many minutes do you engage in exercise at this level? 10 min 08/21/2024 Hunger Vital Sign Answer Date Recorded Within the past 12 months, y ou worried that your food would run out before you got the money to buy more. Never true 08/21/20 24 Within the past 12 months, t he food you bought just didn't last and you didn't have money to get more. Never true 08/21/2024 PRAPARE - Transportation Answer Date Re corded In the past 12 months, has l ack of transportation kept you from medical appointments or from getting medications? No 08/07 In the past 12 months, has l ack of transportation kept you from meetings, work, or from getting things needed for daily living? No 08/21/2024 Housing Stability Vital Sign Answer Seven e Recorded In the last 12 months, was t here a time when you were not able to pay the mortgage or rent on time? Yes 08/21/2024 In the past 12 months, how m any times have you moved where you were living? 0 08/21/2024 At any time in the past 12 m [facility], were you homeless or living in a longterm (including now)? No 08/21/2024 Sexually Active Control Partners Comments Yes Implant [...] Description 04/13/2025 2:15 PM CDT Office Visit [facility] - Primary Care - [place] [address] [place] [address] Andrade Chen PAC [address] [place] [address] 06/02/2025 2:30 PM CDT Office Visit [facility] - Endocrinology - [place] [address] [place] [address] Danuta Daniel MD [address] [place] [address] documented as of this encounter Visit Diagnoses Not on filedocumented in this encounter Additional Health Concerns Assessment Noted Time PHQ-9 Depression Total Score: 20 03/21/2 025 5:04 PM CDT documented as of this encounter Care Teams Municipal Firefighter Relationship Specialty Start Date End Date Andrade Chen, PAC [address] [place] [id number] PCP - General Physician Custom Seamstress 12/10/22 Piyush Sauer DO Gastroenterology 03/04/16 [place] Verma, WEATHERIZATION FIELD TECHNICIAN, CARTOGRAPHY PROFESSOR Nurse Practitioner Advanced Practice Nurse 03/04/16 Socorro Hopson APRN, CARTOGRAPHY PROFESSOR Nurse Practitioner Advanced Practice Nurse 03/04/16 Shelbie Bonner APRN, CARTOGRAPHY PROFESSOR [address] [place] [address] Nurse Practitioner Advanced Practice Nurse 11/02/23 documented as of this encounter
--- OUTSIDE RECORDS SUMMARY | 2025-03-31 20:45 | XMS_ITS | Encounter Summary ---
Author Organization [facility] Address [address] [place] [address] Phone Care Team Providers Care Marketing Systems Manager Name Role Phone Piyush Sauer DO Unavailable [phone] [place] Verma DISTILLERY MILLER, AUGER MILL OPERATOR Unavailable Socorro Hopson DISTILLERY MILLER, AUGER MILL OPERATOR Unavailable Andrade Chen Primary Care Provider [phone] Shelbie Bonner DISTILLERY MILLER, AUGER MILL OPERATOR Unavailable Reason for Visit * Reason Comments Medication Refill Encounter Details Date Type Department Care Team (Late st Contact Info) Description 01/26/[address] [facility] - Primary Care - [place] [address] [place] [address] Andrade Chen, PAC [address] [place] [address] Medication Refill Social History Tobacco [...] Telephone Encounter - Andrade Chen PAC - 01/26/2024 8:48 PM CDT Refill approved. * Telephone Encounter - Norma Son RN - 01/26/2024 11:27 AM CDT Medication failed the protocol, provider to review and approve the medication order if appropriate. Requested Prescriptions Pending Prescriptions Disp Refills cyclobenzaprine (FLEXERIL) 10 MG Tablet [Pharmacy Med Name: CYCLOBENZAPRINE 10MG TABLETS] 30 Tablet0 Sig: TAKE 1 TABLET BY MOUTH THREE TIMES DAILY NEEDED FOR MUSCLE SPASMS Not Delegated - Muscle Relaxants Protocol Failed - 01/26/2024 11:22 AM Failed - This refill cannot be delegated Passed - Visit with relevant provider in past 12 months or upcoming 90 days Recent Visits Date Type Provider Dept 09/25/23 Office Visit Andrade Chen PAC [facility] 06/12/23 Office Visit Andrade Chen PAC [facility] Showing recent visits within past 365 days and meeting all other requirements Future Appointments Date Type Provider Dept 04/07/24 Appointment Andrade Chen PAC [facility] Showing future appointments within next 90 days and meeting all other requirements SITagliptin (Januvia) 100 MG Tablet [Pharmacy Med Name: JANUVIA 100MG TABLETS] 90 Tablet 0 Sig: TAKE 1 TABLET BY MOUTH DAILY DPP-4 Inhibitors Protocol Passed - 01/26/2024 11:22 AM Passed - Visit with relevant provider in past 6 months or upcoming 90 days Recent Visits Date Type Provider Dept 09/25/23 Office Visit Andrade Chen PAC [facility] Showing recent visits within past 182 days and meeting all other requirements Future Appointments Date Type Provider Dept 04/07/24 Appointment Andrade Chen PAC [facility] Showing future appointments within next 90 days and meeting all other requirements Passed - HgA1C on record in the past 6 months HGB-A1C Date Value Ref Range Status 01/25/2024 10.4 (H) 4.0 - 6.0 % Final Passed - GFR on record in past 6 months GFR, EST. NONAFRICAN Date Value Ref Range Status 01/25/2024 >60 >=60 Final documented in this encounter Plan of Treatment Upcoming Encounters Date Type Department Care Team (Late st Contact Info) Description 04/13/2025 2:15 PM CDT Office Visit [facility] - Primary Care - [place] [address] [place] [id number] Andrade Chen PAC [address] [place] [address] 06/02/2025 2:30 PM CDT Office Visit [facility] - Endocrinology - [place] [address] [place] [id number] Danuta Daniel MD [address] [phone] documented as of this encounter Visit Diagnoses Diagnosis Back muscle spasm Other symptoms referable to back Type 2 diabetes mellitus with hyperglycemia, without long-term current use of insulin (HCC) documented in this encounter Additional Health Concerns Assessment Noted Time PHQ-9 Depression Total Score: 0 06/18/20 18 2:00 PM CDT documented as of this encounter Care Teams Marketing Systems Manager Relationship Specialty Start Date End Date Andrade Chen PAC [address] [place] [address] PCP - General Physician Income Tax Analyst 12/10/22 Piyush Sauer DO Gastroenterology 03/04/16 [place] Verma APRN, AUGER MILL OPERATOR Nurse Practitioner Advanced Practice Nurse 03/04/16 Socorro Hopson APRN, AUGER MILL OPERATOR Nurse Practitioner Advanced Practice Nurse 03/04/16 Shelbie Bonner APRN, AUGER MILL OPERATOR [address] [place] [address] Nurse Practitioner Advanced Practice Nurse 11/02/23 documented as of this encounter
--- OUTSIDE RECORDS SUMMARY | 2025-03-31 20:46 | XMS_ITS | Encounter Summary ---
Author Organization [facility] Address [address] [place] [address] Phone Care Team Providers Care Cms Expert Name Role Phone Piyush Sauer DO Unavailable [phone] [place] Verma AERONAUTICAL ENGINEERING TECHNOLOGIST, DERRICK CAR OPERATOR Unavailable [phone] Socorro Hopson AERONAUTICAL ENGINEERING TECHNOLOGIST, DERRICK CAR OPERATOR Unavailable Andrade Chen Primary Care Provider [phone] Shelbie Bonner AERONAUTICAL ENGINEERING TECHNOLOGIST, DERRICK CAR OPERATOR Unavailable Reason for Visit * Reason Comments Medication Refill Encounter Details Date Type Department Care Team (Late st Contact Info) Description 10/25/2024 Refill [facility] - Primary Care - [place] [address] [place] [address] Andrade Chen, PAC [address] [place] [address] Medication Refill Social History Tobacco Use Types Packs/Day Years Used Date Smoking Tobacco: Former Cigarettes 1 15 Smokeless Tobacco: Never Alcohol Use Standard Drinks/Week Comments No 0 (1 standard drink = 0.6 oz pur e alcohol) [facility] Utilities Answer Date Recorded In the [...] Never 08/21/2024 How often do you attend pentecostalism or lutheran serv ices? Never 08/21/2024 Do you belong to any clubs o r organizations such as pentecostalism groups, unions, fraternal or athletic groups, or [...] Date Recorded Total Score - Questions 1-9 7 08/07 [facility] - Occupational Stress [...] any time in the past 12 m [facility], were you homeless or living in a fpc (including now)? No 08/21/2024 Sexually Active Control Partners Comments Yes Implant Comments No Sex and Gender Information Value Date Recorded Sex Assigned at Female 2024 12:01 AM CDT Legal Sex Female 9:16 PM CDT Gender Identity Female 2024 12:01 AM CDT Sexual Orientation Not on file documented as of this encounter Miscellaneous Notes * Telephone Encounter - Danielle Sweeney, RN - 10/25/2024 10:35 AM CST Refill not appropriate. Dosing changed to 20 mg. ER BIT documented in this encounter Plan of Treatment Upcoming Encounters Date Type Department Care Team (Late st Contact Info) Description 04/13/2025 2:15 PM CDT Office Visit [facility] - Primary Care - [place] [address] [place] [address] Andrade Chen PAC [address] [place] [address] 06/02/2025 2:30 PM CDT Office Visit [facility] - Endocrinology - [place] [address] [place] [address] Danuta Daniel MD [address] [address] documented as of this encounter Visit Diagnoses Diagnosis Anxiety and depression Dysthymic disorder documented in this encounter Additional Health Concerns Assessment Noted Time PHQ-9 Depression Total Score: 7 08/22/20 24 9:25 AM TAPPER BIT documented as of this encounter Care Teams Cms Expert Relationship Specialty Start Date End Date Andrade Chen, PAC [address] [place] [address] PCP - General Physician Bobbin Cleaner Hand 12/10/22 Piyush Sauer DO Gastroenterology 03/04/16 [place] Verma APRN, DERRICK CAR OPERATOR Nurse Practitioner Advanced Practice Nurse 03/04/16 Socorro Hopson APRN, DERRICK CAR OPERATOR Nurse Practitioner Advanced Practice Nurse 03/04/16 Shelbie Bonner APRN, DERRICK CAR OPERATOR [address] [place] [address] Nurse Practitioner Advanced Practice Nurse 11/02/23 documented as of this encounter
--- OUTSIDE RECORDS SUMMARY | 2025-03-31 20:46 | XMS_ITS | Clinical Summary ---
Author Organization [facility] Address [address] [place] [address] Phone Care Team Providers Care Textile Colorist Formulator Name Role Phone Piyush Sauer DO Unavailable [phone] [place] Verma DRILL RUNNER HELPER, DIGITAL INTERN Unavailable [phone] Socorro Hopson DRILL RUNNER HELPER, DIGITAL INTERN Unavailable Andrade Chen PAC Primary Care Provider Shelbie Bonner DRILL RUNNER HELPER, DIGITAL INTERN Unavailable Allergies Active Allergy Reactions Criticality Noted Date Comments Other Swelling High 12/26/2015 marijuana Hydrocodone-Acetami nophen Other (see Comments) 02/18/2021 Patient states she does not want to be prescribed Vicodin as she likes them and knows she will become addicted to them Medications clindamycin (CLEOCIN T) 1 % Lotion APPLY EXTERNALLY TO THE AFFECTED AREA ON FOLDS DAILY NEEDED 05/15/20 23 Active Blood Glucose Monitoring Suppl DeviceIndicatio ns:Type 2 diabetes mellitus with hyperglycemia, without long-term current use of insulin (HCC) Test once daily 1 Each 06/12/20 23 Active Additional Information Patient not taking.Reported on 03/20/2025 Glucose Blood (OneTouch Verio) StripIndication s:Type 2 diabetes mellitus with hyperglycemia, without long-term current use of insulin (HCC) Use as directed 100 Strip 3 05/05/20 24 Active Additional Information Patient not taking.Reported on 03/20/2025 Hydrocortisone, Perianal, (Anusol-HC) 2.5 % Cream Apply daily. Apply to rectum as directed. 28 g 12/07/19 25 Active Lancets MiscIndications :Type 2 diabetes mellitus with hyperglycemia, without long-term current use of insulin (HCC) Test once daily. 100 Lancet . 3 12/20/19 Active Additional Information Patient not taking.Reported on 03/20/2025 albuterol 108 (90 Base) MCG/ACT Aerosol SolutionIndicat ions:Mild intermittent asthma, unspecified whether complicated take 2 Puffs by inhalation every 6 hours as needed for Wheezing or Cough. 18 g 12/20/19 25 Active triamcinolone (KENALOG) 0.1 % CreamIndication s:Contact dermatitis, unspecified contact dermatitis type, unspecified trigger Application Site: rash to right side of neck. Apply twice daily until resolved. 45 g 02/08/20 25 Active Additional Information Patient not taking.Reported on 03/20/2025 dicyclomine (BENTYL) 10 MG Capsule Take 1 Capsule by mouth daily. 30 Capsule 3 02/08/20 25 Active naproxen (NAPROSYN) 500 MG TabletIndicatio ns:Pain, dental TAKE ONE TABLET BY MOUTH TWICE DAILY WITH MEALS. 60 Tablet 03/06/20 25 Active Additional Information Patient taking differently: 500 mg Oral 2 TIMES DAILY PRN, Reported on 03/29/2025 FLUoxetine (PROzac) 20 MG CapsuleIndicati ons:Anxiety and depression TAKE 1 CAPSULE BY MOUTH DAILY. 90 Capsule 03/06/20 25 Active Phentermine HCl 37.5 MG TabletIndicatio ns:Class 3 severe obesity with serious comorbidity and body mass index (BMI) of 50.0 to 59.9 in adult, unspecified obesity type TAKE 1 TABLET BY MOUTH EVERY MORNING BEFORE BREAKFAST 30 Tablet 03/13/20 25 Active doxycycline hyclate (VIBRA-TABS) 100 MG TabletIndicatio ns:Bacterial folliculitis Take 1 Tablet by mouth 2 times daily for 30 days. 60 Tablet 03/29/20 25 2024 Active doxycycline hyclate (VIBRA-TABS) 100 MG Tablet Take 100 mg by mouth. 02/10/20 23 2024 Discontinued(R eorder) FLUoxetine (PROzac) 20 MG CapsuleIndicati ons:Anxiety and depression Take 1 Capsule by mouth daily. 90 Capsule 12/21/19 25 2024 Discontinued naproxen (NAPROSYN) 500 MG TabletIndicatio ns:Pain, dental TAKE ONE TABLET BY MOUTH TWICE DAILY WITH MEALS. 60 Tablet 02/07/20 25 2024 Discontinued Phentermine HCl 37.5 MG TabletIndicatio ns:Class 3 severe obesity with serious comorbidity and body mass index (BMI) of 50.0 to 59.9 in adult, unspecified obesity type TAKE 1 TABLET BY MOUTH EVERY MORNING BEFORE BREAKFAST 30 Tablet 02/07/20 25 2024 Discontinued Active Problems Problem Noted Date Diagnosed Date History of rectal bleeding 03/29/2025 Urinary pain 02/07/2025 Type 2 diabetes mellitus wit h hyperglycemia, without long-term current use of insulin 05/05/2024 Hyperlipidemia 03/04/2016 Obesity, Class III, BMI 40-49.9 (morbid obesity) 03/04/2016 Gastroesophageal reflux disease 03/04/2016 Resolved Problems Problem Noted Date Diagnosed Date Resolved Date Folliculitis 01/04/2018 11/25/2024 Back muscle spasm 03/04/2016 11/25/2024 Encounters Date Type Department Care Team Description 03/29/2025 10:17 AM CDT Anesthesia Event [facility] Periop [address] [place] [address] Moises Richards APRN, REDDY 03/29/2025 10:15 AM CDT Ancillary Procedure [facility] Main [address] [place] [address] Juice Chong MD Discharge Disposition: Discharged to home or Selfcare 03/29/2025 9:30 AM CDT - 03/29/2025 10:00 AM CDT [facility] [address] [place] [address] Juice Chong MD COLONOSCOPY - SPLENIC FLEXURE RANDOM BIOPSY (JUMBO FORCEPS) 03/29/2025 7:43 AM CDT - 03/29/2025 11:32 AM CDT Hospital Encounter [facility] Preop/Pacu II [address] [place] [phone] Juice Chong MD History of rectal bleeding Discharge Disposition: Discharged to home or Selfcare 03/29/2025 Travel 03/28/2025 Transcribe Orders [facility] [address] [place] [phone] Andrade Chen, GURPREET At risk for obstructive sleep apnea (Primary Dx) 03/23/2025 Results Follow-Up [facility] - Endocrinology - [place] [address] [place] [phone] Danuta Daniel MD NM THYROID UPTAKE IMAGING - SINGLE 03/22/2025 Telephone [facility] - Primary Care - [place] [id number] [place] [phone] Andrade Chen, PAC 03/21/2025 2:15 PM CDT - 03/21/2025 11:59 PM CDT Hospital [facility] Medicine [address] [place] [phone] Danuta Daniel MD Discharge Disposition: Discharged to home or Selfcare 03/21/2025 7:49 AM CDT - 03/21/2025 2:14 PM CDT [facility] [address] [place] [phone] Danuta Daniel MD Discharge Disposition: Discharged to home or Selfcare 03/20/2025 9:00 AM CDT Office Visit [facility] - Gastroenterology - [place] [address] [place] [phone] Shelbie Bonner APRN, DIGITAL INTERN Hemorrhoids, unspecified hemorrhoid type (Primary Dx); Rectal pain; Rectal bleeding; History of colon polyps; Constipation, unspecified constipation type Discharge Disposition: Discharged to home or Selfcare 03/20/2025 Telephone [facility] Gastroenterology [facility] [address] [place] [phone] Shelbie Bonner APRN, ZACK 03/20/2025 Travel 03/18/2025 Telephone [facility] Call [facility] [address] [place] [phone] Andrade Chen, PAC Appointment 03/11/2025 Refill [facility] [place] [address] [place] [address] Andrade Chen, PAC Medication Refill 03/06/2025 Results Follow-Up [facility] [place] [address] [place] [address] Poppy Coe APRN, DIGITAL INTERN CULTURE, URINE 03/06/2025 Refill [facility] [place] [address] [place] [address] Andrade Chen, PAC Medication Refill 03/05/2025 Results Follow-Up [facility] - [place] [id number] [place] [address] Andrade Chen, PAC URINALYSIS REFLEX IF INDICATED BY ABNORMAL RESULTS 03/05/2025 Telephone [facility] [address] [place] [phone] Andrade Chen, PAC Erroneous Encounter - Disregard 03/05/2025 Nurse Triage [facility] [place] [id number] [place] [address] Poppy Coe APRN, DIGITAL INTERN Pelvic Pain 03/03/2025 3:25 PM CDT - 03/03/2025 11:59 PM CDT Hospital En[facility] Ultrasound 1 [place] [address] Danuta Daniel MD Discharge Disposition: Discharged to home or Selfcare 03/03/2025 Travel 03/02/2025 Telephone [facility] [address] [place] [phone] Andrade Chen, PAC Appointment 02/28/2025 Results Follow-Up [facility] [address] [place] [address] Danuta Daniel MD THYROID STIMULATING HORMONE (TSH), THYROXINE (T4) FREE 02/27/2025 2:30 PM CDT Office Visit [facility] [address] [place] [address] Danuta Daniel MD Type 2 diabetes mellitus with hyperglycemia, without long-term current use of insulin (HCC) (Primary Dx); Subclinical hyperthyroidism; Class 3 severe obesity due to excess calories with serious comorbidity and body mass index (BMI) of 40.0 to 44.9 in adult; Medication dose changed Discharge Disposition: Discharged to home or Selfcare 02/27/2025 Travel 02/26/2025 Nurse Triage [facility] [address] [place] [address] Andrade Chen, PAC Low Blood Sugar 02/09/2025 Results Follow-Up [facility] [place] [address] [place] [phone] Poppy Coe APRN, DIGITAL INTERN POCT UA AUTOMATED W/O MICRO, CULTURE, URINE 02/07/2025 8:15 AM CDT Office Visit [facility] [address] [facility] [phone] Poppy Coe DRILL RUNNER HELPER, DIGITAL INTERN Urinary pain (Primary Dx); Contact dermatitis, unspecified contact dermatitis type, unspecified trigger Discharge Disposition: Discharged to home or Selfcare 02/07/2025 Travel 02/06/2025 Nurse Triage [facility] [address] [place] [address] Andrade Chen, PAC Advice Only; urinary symptoms 02/05/2025 [facility] [address] [place] [address] Andrade Chen, PAC Medication Refill 02/04/2025 Refill [facility] [address] [place] [address] Andrade Chen, PAC Medication Refill 01/18/2025 Refill [facility] [address] [place] [address] Andrade Chen, PAC Medication Refill 01/05/2025 Refill [facility] [place] [address] [place] [address] Andrade Chen, PAC Medication Refill from Last 3 Months Immunizations Immunization Administration Dates Next Due Covid-19, Mrna, Lnp-s, Pf, 3 0 Mcg/0.3 Ml Dose ([place]) 05/27/2021,04/12/2021 DTP Vaccine 01/14/1994, 2,07/03/1990,1989,02/08/1990 Hepatitis B Vaccine, Pediatric/adolescent 03/08/1997,01/03/1997 Influenza Vaccine, Quadrivalent, PF 06/11/2017 MMR Vaccine 01/14/1994,05/18/1991 OPV 01/14/1994, 2,04/19/1990,1989 TDAP Vaccine 10/06/2015,03/25/2015 Family History Medical History Relation Name Comments No Known Problems Father Diabetes Mother Lea Hypertension Mother Lea Hyperthyroidism Mother Lea Hollis disea se Melanoma Mother Lea hollis Mother Lea Relation Name Status Comments Father Alive Mother Lea Alive Social History Tobacco Use Types Packs/Day Years Used Date Smoking Tobacco: Former Cigarettes 1 15 Smokeless Tobacco: Never Tobacco Cessation:Counseling Given: Not Answered Comments:2021 quit Alcohol Use Standard Drinks/Week Comments No 0 (1 standard drink = 0.6 oz pur e alcohol) [facility] Utilities Answer Date Recorded In the past [...] Never 08/21/2024 How often do you attend adventism or jew serv ices? Never 08/21/2024 Do you belong to any clubs o r organizations such as adventism groups, unions, fraternal or athletic groups, or [...] Recorded Total Score - Questions 1-9 11/06 [facility] of Occupat ional Health - Occupational Stress [...] any time in the past 12 m [facility], were you homeless or living in a long-term (including now)? No 08/21/2024 Sexually Active Control Partners Comments Yes Surgical Female Comments No Sex and Gender Information Value Date Recorded Sex Assigned at Female 2024 12:01 AM CDT Legal Sex Female 9:16 PM CDT Gender Identity Female 2024 12:01 AM CDT Sexual Orientation Not on file Last Filed Vital Signs Vital Sign Reading Time Taken Comments Blood Pressure 123/81 03/29/2025 11:10 AM CDT Pulse 70 03/29/2025 11:10 AM CDT Temperature 36 C (96.8 F) 03/29/2025 11:10 AM CDT Respiratory Rate 18 03/29/2025 11:10 AM CDT Oxygen Saturation 100% 03/29/2025 11:10 AM CDT Inhaled Oxygen Concentration - - Weight 114.3 kg (252 lb) 03/21/2025 8:03 AM CDT Height 160 cm (5' 3) 03/21/2025 8:03 AM CDT Body Mass Index 44.64 03/21/2025 8:03 AM CDT Plan of Treatment Upcoming Encounters Date Type Department Care Team (Late st Contact Info) Description 04/13/2025 2:15 PM CDT Office Visit [facility] - Primary Care - [place] [address] [place] [address] Andrade Chen PAC [address] [place] [address] 06/02/2025 2:30 PM CDT Office Visit [facility] - Endocrinology - [place] [address] [place] [address] Danuta Daniel MD [address] [address] Health Maintenance Due Date Last Done Comments Diabetes: Eye Exam 1989 Diabetes: Foot Exam 1989 Hepatitis C Virus (HCV) Screening 1989 Hepatitis B Immunization (3 of 3 - 3-dose series) 05/03/1997 03/08/1997, 01/03/1997 Human Papillomavirus (HPV) Immunization (1 - 3-dose series) 2004 Pneumococcal Immunization Combined (1 of 2 - PCV) 2008 SARS-COV-2 Immunization (3 - season) 2024 05/27/2021, 04/12/2021 Influenza Immunization (#1) 2025 06/11/2017 Diabetes: Hemoglobin A1c 08/29/2025 025, 10/31/2024, 04/25/2024, Additional history exists DTaP/Tdap/Td Immunization (8 - Td or Tdap) 10/06/2025 10/06/2015, 03/25/2015, 01/14/1994, Additional history exists Td Immunization Every 10 Years (Adults With 1 Tdap) 10/06/2025 10/06/2015, 03/25/2015 Diabetes: Nephropathy Screening 2025 2024, 10/31/2024, 07/13/2024, Additional history exists Respiratory Syncytial Virus (RSV) Immunization (Adult) (1 - 1-dose 75+ series) 2064 Meningococcal Immunization (ACWY) Aged Out No longer eligible based on patient's age to complete this topic Rotavirus Immunization Aged Out No lo nger eligible based on patient's age to complete this topic Procedures Procedure Name Priority Date/Time Associated Diagnosis Comments HOME SLEEP STUDY UNATTENDED TYPE III Routine 03/30/2025 At risk for obstructive sleep apnea PATHOLOGY SURGICAL Routine 03/29/2025 10:33 AM CDT COLON CA SCRN NOT HI RSK IND 03/29/2025 10:20 AM CDT COLONOSCOPY - SPLENIC FLEXURE RANDOM BIOPSY (JUMBO FORCEPS) Special Needs Pt asked if you could leave a message if she doesn't answer when you call to give her arrival time. COLORECTAL SCRN; HI RISK IND 03/29/2025 10:20 AM CDT COLONOSCOPY - SPLENIC FLEXURE RANDOM BIOPSY (JUMBO FORCEPS) Special Needs Pt asked if you could leave a message if she doesn't answer when you call to give her arrival time. TN COLONOSCOPY FLX DX W/COLLJ SPEC WHEN PFRMD 03/29/2025 10:20 AM CDT COLONOSCOPY - SPLENIC FLEXURE RANDOM BIOPSY (JUMBO FORCEPS) Special Needs Pt asked if you could leave a message if she doesn't answer when you call to give her arrival time. GI LAB IMAGING - EGD Routine 03/29/2025 10:12 AM CDT NM THYROID UPTAKE IMAGING - SINGLE Routine 03/21/2025 2:34 PM CDT Subclinical hyperthyroidism US THYROID Routine 03/03/2025 3:37 PM CDT Subclinical hyperthyroidism URINALYSIS REFLEX IF INDICATED BY ABNORMAL RESULTS Routine 03/03/2025 3:20 PM CDT Dysuria CULTURE, URINE Routine 03/03/2025 3:20 PM CDT Urinary pain TRIIODOTHYRININE (T3) TOTAL Routine 02/27/2025 3:33 PM CDT Subclinical hyperthyroidism THYROXINE (T4) FREE Routine 02/27/2025 3:33 PM CDT Subclinical hyperthyroidism THYROID STIMULATING HORMONE (TSH) Routine 02/27/2025 3:33 PM CDT Subclinical hyperthyroidism POCT GLYCOSYLATED HEMOGLOBIN Routine 02/27/2025 3:10 PM CDT Type 2 diabetes mellitus with hyperglycemia, without long-term current use of insulin (HCC) CULTURE, URINE Routine 02/07/2025 9:09 AM CDT Urinary pain POCT UA AUTOMATED W/O MICRO Routine 02/07/2025 8:30 AM CDT Urinary pain CMP (COMPREHENSIVE METABOLIC PANEL) STAT 2024 12:18 AM CDT from Last 3 Months or Most Recently Relevant to Health Maintenance Results * HOME SLEEP STUDY UNATTENDED TYPE III (03/30/2025) Andrade Yuan [facility] ORDERABLES Lulu l Result * Pathology Surgical (03/29/2025 10:33 AM CDT) Case Report Surgical Pathology Report Case: [id number] Authorizing Provider: Juice Chong MD Collected: 03/29/2025 10:33 AM Ordering Location: [facility] Received: 03/29/2025 11:51 AM [facility] GI Lab Preop/Pacu II Pathologist: Vicki Adam MD PhD Specimen: Colon, SPLENIC FLEXURE RANDOM BIOPSY 03/30/2025 8:39 AM CDT [facility] FINAL DIAGNOSIS Splenic flexure random biopsy: - Colonic mucosa, negative for diagnostic abnormalities 03/30/2025 8:39 AM CDT [facility] 0838 CDT Pre-Operative Diagnosis HEMORRHOIDS 03/30/2025 8:39 AM CDT [facility] Gross Description A. SPLENIC FLEXURE RANDOM BIOPSY The specimen presents in 1 formalin container for gross and microscopic examination labeled with the patient's name, Lurdes Hilton. Specimen A is designated as splenic flexure random biopsy. The specimen consists of is 1 pham-pink piece of tissue measuring 0.7 cm in greatest dimension. The specimen is entirely submitted in cassette A1. AM Total time of formalin fixation: 10 hours and 58 minutes. 03/30/2025 8:39 AM CDT [facility] Microscopic Description Microscopic examination was performed which supports the final diagnosis. All control tissues stained appropriately. 03/30/2025 8:39 AM CDT [facility] Tissue COLON STRUCTURE / Unknown 03/29/2025 10:33 AM CDT 03/29/2025 11:51 AM CDT us Juice Chong MD PATHOLOGY/CYTOLOGY ORDERAB LES Final Result [facility] [address] [place] [address] * GI LAB IMAGING - EGD (03/29/2025 10:12 AM CDT) us Juice Chong MD IMG DIAGNOSTIC ORDERABLES Final Result * NM THYROID UPTAKE IMAGING - SINGLE (03/21/2025 2:34 PM CDT) Anatomical Region Laterality Modality BODY N/A Nuclear Medicine 03/21/2025 4:26 PM CDT Impressions 03/21/2025 4:29 PM CDT IMPRESSION: 1. Normal thyroid scintigraphy and uptake. Narrative 03/21/2025 4:29 PM CDT EXAM DESCRIPTION: NM THYROID UPTAKE IMAGING - SINGLE RADIOPHARMACEUTICAL: 293 uCi I-123 (sodium iodide) p.o. REASON FOR STUDY: Subclinical hyperthyroidism. Thyrotoxicosis. TECHNIQUE: Delayed multiplanar scintigrams were obtained. COMPARISON: Thyroid ultrasound 03/03/2025 FINDINGS: The thyroid images demonstrate uniform activity in a gland of normal size and configuration. The 6-hour radioactive iodine uptake is 8% (normal range 4-19%). THIS IS AN ELECTRONICALLY VERIFIED FINAL REPORT 03/21/2025 4:26 PM - Electronically signed by Andrade Cunningham M.D. LB: LB Report ID: [id number] Reading Location: [place] [address] Procedure Note Andrade Cunningham MD - 03/21/2025 EXAM DESCRIPTION: NM THYROID UPTAKE IMAGING - SINGLE RADIOPHARMACEUTICAL: 293 uCi I-123 (sodium iodide) p.o. REASON FOR STUDY: Subclinical hyperthyroidism. Thyrotoxicosis. TECHNIQUE: Delayed multiplanar scintigrams were obtained. COMPARISON: Thyroid ultrasound 03/03/2025 FINDINGS: The thyroid images demonstrate uniform activity in a gland of normal size and configuration. The 6-hour radioactive iodine uptake is 8% (normal range 4-19%). THIS IS AN ELECTRONICALLY VERIFIED FINAL REPORT 03/21/2025 4:26 PM - Electronically signed by Andrade Cunningham M.D. LB: LB Report ID: [id number] Reading Location: [place] [address] IMPRESSION: 1. Normal thyroid scintigraphy and uptake. us Danuta Daniel MD IMG NM ORDERABLES Final Result * US THYROID (03/03/2025 3:37 PM CDT) Anatomical Region Laterality Modality BODY N/A Ultrasound 03/21/2025 4:28 PM CDT Impressions 03/21/2025 4:30 PM CDT IMPRESSION: 1. No sonographic abnormality of the thyroid. ACR TI-RADS Risk Category: Not applicable REFERENCE: According to the ACR Thyroid Imaging, Reporting and Data System (TI-RADS): White Paper of the ACR TI-RADS Committee Jan, 2017 recommendations regarding the management of thyroid nodules are as follows: 1. TI-RADS 1: Risk of malignancy <2%, no FNA or follow up required. 2. TI-RADS 2: Risk of malignancy <2%, no FNA or follow up required. 3. TI-RADS 3: Risk of malignancy 2%-5%. Nodules 1.5 cm or greater follow up at 1, 3 and 5 years recommended, for nodules 2.5 cm or greater FNA recommended. 4. TI-RADS 4: Risk of malignancy 5%-20% Nodules 1.0 cm or greater follow up at 1, 2, 3 and 5 years recommended, for nodules 1.5 cm or greater FNA recommended 5. TI-RADS 5: Risk of malignancy >20%. Nodules 0.5 cm or greater annual follow up for 5 years recommended, for nodules 1.0 cm or greater FNA recommended. The ACT TI-RADS committee recommends targeting no more than two nodules for FNA. If three or more nodules meet criteria for FNA, the two with the most suspicious appearance based on ACR TI-RADS points should be sampled. Narrative 03/21/2025 4:30 PM CDT EXAM DESCRIPTION: US THYROID REASON FOR STUDY: Thyrotoxicosis. TECHNIQUE: Ultrasound of the thyroid was performed with grayscale and color doppler. COMPARISON: None FINDINGS: RIGHT: The right thyroid lobe measures 6.6 x 2.2 x 2.1 cm. The right thyroid lobe is normal in echotexture. LEFT: The left thyroid lobe measures 6.2 x 2.1 x 1.7 cm. The left thyroid lobe is normal in echotexture. ISTHMUS: The isthmus measures 0.3 cm in AP dimension. The isthmus is normal in echotexture. VASCULARITY: Normal. OTHER: No other significant finding. THIS IS AN ELECTRONICALLY VERIFIED FINAL REPORT 03/21/2025 4:28 PM - Electronically signed by Andrade Cunningham M.D. LB: SEBASTIAN Report ID: [id number] Reading Location: [id number] Procedure Note Andrade Cunningham MD - 03/21/2025 EXAM DESCRIPTION: US THYROID REASON FOR STUDY: Thyrotoxicosis. TECHNIQUE: Ultrasound of the thyroid was performed with grayscale and color doppler. COMPARISON: None FINDINGS: RIGHT: The right thyroid lobe measures 6.6 x 2.2 x 2.1 cm. The right thyroid lobe is normal in echotexture. LEFT: The left thyroid lobe measures 6.2 x 2.1 x 1.7 cm. The left thyroid lobe is normal in echotexture. ISTHMUS: The isthmus measures 0.3 cm in AP dimension. The isthmus is normal in echotexture. VASCULARITY: Normal. OTHER: No other significant finding. THIS IS AN ELECTRONICALLY VERIFIED FINAL REPORT 03/21/2025 4:28 PM - Electronically signed by Andrade Cunningham M.D. LB: SEBASTIAN Report ID: [id number] Reading Location: [place] [address] IMPRESSION: 1. No sonographic abnormality of the thyroid. ACR TI-RADS Risk Category: Not applicable REFERENCE: According to the ACR Thyroid Imaging, Reporting and Data System (TI-RADS): White Paper of the ACR TI-RADS Committee Jan, 2017 recommendations regarding the management of thyroid nodules are as follows: 1. TI-RADS 1: Risk of malignancy <2%, no FNA or follow up required. 2. TI-RADS 2: Risk of malignancy <2%, no FNA or follow up required. 3. TI-RADS 3: Risk of malignancy 2%-5%. Nodules 1.5 cm or greater follow up at 1, 3 and 5 years recommended, for nodules 2.5 cm or greater FNA recommended. 4. TI-RADS 4: Risk of malignancy 5%-20% Nodules 1.0 cm or greater follow up at 1, 2, 3 and 5 years recommended, for nodules 1.5 cm or greater FNA recommended 5. TI-RADS 5: Risk of malignancy >20%. Nodules 0.5 cm or greater annual follow up for 5 years recommended, for nodules 1.0 cm or greater FNA recommended. The ACT TI-RADS committee recommends targeting no more than two nodules for FNA. If three or more nodules meet criteria for FNA, the two with the most suspicious appearance based on ACR TI-RADS points should be sampled. us Danuta Daniel MD IMG US ORDERABLES Final Result * (ABNORMAL) URINALYSIS REFLEX IF INDICATED BY ABNORMAL RESULTS (03/03/2025 3:20 PM CDT) SPECIFIC GRAVITY 1.015 1.003 - 1.030 03/03/2025 5:03 PM CDT [facility] URINE PH 6.0 5.0 - 9.0 03/03/2025 5:03 PM CDT [facility] WBC ESTERASE Negative Negative 03/03/2025 5:03 PM CDT [facility] NITRITE Negative Negative 03/03/2025 5:03 PM CDT [facility] PROTEIN, RANDOM URINE 15 mg/dL(A) Negative 03/03/2025 5:03 PM CDT [facility] URINE GLUCOSE, QUAL Negative Negative 03/03/2025 5:03 PM CDT [facility] [facility] URINE KETONES Negative Negative 03/03/2025 5:03 PM CDT [facility] UROBILINOGEN Normal Normal mg/dL 03/03/2025 5:03 PM CDT [facility] URINE BLOOD Negative Negative lux/ul 03/03/2025 5:03 PM CDT [facility] URINALYSIS COLOR Yellow 03/03/20 5:03 PM CDT [facility] URINALYSIS CLARITY Slightly Cloudy 03/03/2025 5:03 PM CDT [facility] Urine URINE SPECIMEN OBTAINED BY CLEAN CATCH PROCEDURE / Unknown Non-Phlebotomy Collection / Unknown 03/03/2025 3:20 PM CDT 03/03/2025 4:37 PM CDT us Andrade Chen PAC URINE ORDERABLES Final Resul t [facility] [address] [place] [address] * CULTURE, URINE (03/03/2025 3:20 PM CDT) Only the most recent of2 resultswithin the time period is included. [facility] CULTURE RESULTS Mixed Growth or 3 or More Organisms, Probable Collection Contamination, Suggest Repeat 03/04/2025 9:07 PM CDT [facility] URINE SPECIMEN OBTAINED BY CLEAN CATCH PROCEDURE / Unknown Non-Phlebotomy Collection / Unknown 03/03/2025 3:20 PM CDT 03/03/2025 4:37 PM CDT us Poppy Coe APRN, DIGITAL INTERN MICROBIOLOGY - GENERAL ORD ERABLES Final Result [facility] [address] [place] [address], [place] * THYROXINE (T4) FREE (02/27/2025 3:33 PM CDT) T4 FREE 1.1 0.7 - 1.9 ng/dL 02/27/2025 4:58 PM CDT [facility] Blood Venipuncture / Unknown 02/27/2025 3:33 PM CDT 02/27/2025 4:08 PM CDT us Danuta Daniel MD CHEMISTRY ORDERABLES Final Resul t Performing Organization Address City/[facility]/ZIP Co de Phone Number [facility] [address] [place] [address] * (ABNORMAL) THYROID STIMULATING HORMONE (TSH) (02/27/2025 3:33 PM CDT) TSH 0.154(L) 0.300 - 5.000 mIU/L 02/27/2025 6:02 PM CDT [facility] Blood Venipuncture / Unknown 02/27/2025 3:33 PM CDT 02/27/2025 4:08 PM CDT us Danuta Daniel MD CHEMISTRY ORDERABLES Final Resul t Performing Organization Address City/[facility]/ZIP Co de Phone Number [facility] [address] [place] [address] * TRIIODOTHYRININE (T3) TOTAL (02/27/2025 3:33 PM CDT) [facility] T3 97 40 - 193 ng/dL 02/28/2025 4:27 PM CDT [facility] Blood Venipuncture / Unknown 02/27/2025 3:33 PM CDT 02/27/2025 4:08 PM CDT Danuta Daniel MD CHEMISTRY ORDERABLES Final Resul t [facility] [address] [place] [address], * POCT GLYCOSYLATED HEMOGLOBIN (02/27/2025 3:10 PM CDT) [facility] HGB-A1C 5.1 4 - 6 % Blood 02/27/2025 3:10 PM CDT Danuta Daniel MD POINT OF CARE TESTING (MANUAL) F inal Result * POCT UA AUTOMATED W/O MICRO (02/07/2025 8:30 AM CDT) [facility] POC UA SPECIFIC GRAVITY 1.030 URINE PH 5.0 5.0 - 9.0 POC URINE LEUKOCYTES Negative Negative Eddi/uL POC URINE NITRITE Negative Negative POC URINE PROTEIN Negative Negative mg/dL POC URINE GLUCOSE Norm Negative, Norm mg/dL POC URINE KETONE Negative Negative mg/dL POC URINE UROBILINOGEN 1 E.U./dL (mg/dL) Norm, 0.2 E.U./dL (mg/dL), 1 E.U./dL (mg/dL) POC URINE BILIRUBIN Negative Negative mg/dL POC URINE BLOOD INSTRUMENT Negative Negative Lux/uL POC URINE COLOR Yellow POC URINE CLARITY Cloudy Urine 02/07/2025 8:30 AM CDT Poppy Coe APRN, DIGITAL INTERN POINT OF CARE TESTING (MAN UAL) Final Result * (ABNORMAL) CMP (Comprehensive Metabolic Panel) (2024 12:18 AM CDT) [facility] SODIUM 141 136 - 145 mmol/L 2024 12:42 AM T [facility] POTASSIUM 3.7 3.5 - 5.1 mmol/L 2024 12:42 AM [facility] CHLORIDE 111(H) 98 - 107 mmol/L 2024 12:42 AM [facility] CO2, VENOUS 23 22 - 30 mmol/L 2024 12:42 AM T [facility] ANION GAP 10.7 <18.0 mmol/L 2024 12:42 AM [facility] GLUCOSE 109(H) 70 - 99 mg/dL 2024 12:42 AM T [facility] BUN 10 5 - 18 mg/dL 2024 12:42 AM [facility] CREATININE, BLOOD 0.78 0.60 - 1.00 mg/dL 2024 12:42 AM T [facility] BUN/CREATININE RATIO 13 12 - 20 ratio 2024 12:42 AM [facility] TOTAL PROTEIN 7.5 6.0 - 8.0 g/dL 2024 12:42 AM [facility] ALBUMIN 4.0 3.5 - 5.0 g/dL 2024 12:42 AM [facility] A/G RATIO 1.1 1.0 - 2.2 2024 12:42 AM T [facility] CALCIUM 8.9 8.7 - 10.5 mg/dL 2024 12:42 AM T [facility] T BILI 0.3 0.2 - 1.2 mg/dL 2024 12:42 AM T [facility] SGOT (AST) 18 <43 U/L 2024 12:42 AM T [facility] SGPT (ALT) 21 <56 U/L 2024 12:42 AM CDT [facility] ALKALINE PHOSPHATASE 59 40 - 150 U/L 2024 12:42 AM CDT [facility] GFR, ESTIMATED >60 >=60 2024 12:42 AM CDT [facility] Comment: Creatinine Clearance is the preferred criteria for selecting drug dose adjustments in renally impaired patients. The GFR is provided as additional pertinent clinical information. GFR is reported in mL/min/1.73 sq m. Calculation based on the Chronic Kidney Disease Epidemiology Collaboration (CKD- EPI) equation refit without adjustment for race. GFR, EST. >60 >=60 025 12:42 AM CDT [facility] GFR, EST. 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
[2025-03-31 21:25] VITALS: BP 116/78; PULSE 94; RESP 18; TEMP 36.6; O2SAT 99
== END 2025-03-31 21:59 | disposition home or self-care (01) ==
PROVIDERS: Emergency Provider Emergency Medicine
DX: S83.91XA Sprain of unspecified site of right knee, initial encounter (principal); X50.9XXA Other and unspecified overexertion or strenuous movements or postures, initial encounter
CPT/HCPCS: 73564; 96372; 99283; J1885